=== PATIENT | female | born 1940 | race Caucasian/White ===

== ENCOUNTER 2020-09-26 12:56 | Outpatient (REF) | payer MEDICARE, OTHER, SELFPAY ==
--- NOTE | ~2020-09-26 | XR_ITS ---
EXAMINATION: XR KNEES STANDING, BILATERAL XR KNEE, RIGHT XR KNEE, LEFT CLINICAL INFORMATION: Bilateral knee pain. COMPARISON: 06/01/2008 TECHNIQUE: AP standing view of both knees as well as sunrise and lateral views of each knee. FINDINGS: RIGHT KNEE: There is significant narrowing of the medial joint space compartment as well as the patellofemoral joint about the lateral facet. There is prominent spurring present at the patellofemoral joint. No acute fracture or dislocation. No knee effusion is appreciated. LEFT KNEE: There is significant narrowing of the medial joint space compartment as well as prominent spurring about the patellofemoral joint and narrowing of the lateral facet. No acute fracture or dislocation evident. No effusion. Vascular calcifications are present. 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 This has progressed since previous study of 06/01/2008.
--- NOTE | ~2020-09-26 | XR_ITS ---
EXAMINATION: XR KNEES STANDING, BILATERAL XR KNEE, RIGHT XR KNEE, LEFT CLINICAL INFORMATION: Bilateral knee pain. COMPARISON: 06/01/2008 TECHNIQUE: AP standing view of both knees as well as sunrise and lateral views of each knee. FINDINGS: RIGHT KNEE: There is significant narrowing of the medial joint space compartment as well as the patellofemoral joint about the lateral facet. There is prominent spurring present at the patellofemoral joint. No acute fracture or dislocation. No knee effusion is appreciated. LEFT KNEE: There is significant narrowing of the medial joint space compartment as well as prominent spurring about the patellofemoral joint and narrowing of the lateral facet. No acute fracture or dislocation evident. No effusion. Vascular calcifications are present. XR/XR knee standing BI IMPRESSION: Bilateral bicompartmental significant degenerative change involving the medial joint space compartments and patellofemoral joints. This has progressed since previous study of 06/01/2008.
--- NOTE | ~2020-09-26 | XR_ITS ---
EXAMINATION: XR KNEES STANDING, BILATERAL XR KNEE, RIGHT XR KNEE, LEFT CLINICAL INFORMATION: Bilateral knee pain. COMPARISON: 06/01/2008 TECHNIQUE: AP standing view of both knees as well as sunrise and lateral views of each knee. FINDINGS: RIGHT KNEE: There is significant narrowing of the medial joint space compartment as well as the patellofemoral joint about the lateral facet. There is prominent spurring present at the patellofemoral joint. No acute fracture or dislocation. No knee effusion is appreciated. LEFT KNEE: There is significant narrowing of the medial joint space compartment as well as prominent spurring about the patellofemoral joint and narrowing of the lateral facet. No acute fracture or dislocation evident. No effusion. Vascular calcifications are present. XR/XR knee LT 2V IMPRESSION: Bilateral bicompartmental significant degenerative change involving the medial joint space compartments and patellofemoral joints. This has progressed since previous study of 06/01/2008.
--- NOTE | ~2020-09-26 | XR_ITS ---
EXAMINATION: XR PELVIS AP XR HIP, BILATERAL CLINICAL INFORMATION: Pain bilateral hips. COMPARISON: Right hip 01/24/2014. TECHNIQUE: AP pelvis one view. 2 views each hip. FINDINGS: AP PELVIS: There is mild loss of bilateral hip joint space without bony erosive changes. There is moderate periarticular spurring. SI joints are symmetrical. There is no fracture or lytic process of the pelvis. RIGHT HIP: There is moderate loss of right hip joint space with moderate periarticular spurring. Mild subchondral cystic changes seen along the femoral head. The soft tissues are normal. LEFT HIP: There is moderate loss of left hip joint space with mild periarticular spurring. There are no subchondral cystic changes. No visible acute fracture or dislocation seen. The soft tissues are normal. XR/XR hip LT min 2V IMPRESSION: Bilateral hip joint arthritis worse on the right side. No visible acute fracture, dislocation or lytic process seen.
--- NOTE | ~2020-09-26 | XR_ITS ---
EXAMINATION: XR PELVIS AP XR HIP, BILATERAL CLINICAL INFORMATION: Pain bilateral hips. COMPARISON: Right hip 01/24/2014. TECHNIQUE: AP pelvis one view. 2 views each hip. FINDINGS: AP PELVIS: There is mild loss of bilateral hip joint space without bony erosive changes. There is moderate periarticular spurring. SI joints are symmetrical. There is no fracture or lytic process of the pelvis. RIGHT HIP: There is moderate loss of right hip joint space with moderate periarticular spurring. Mild subchondral cystic changes seen along the femoral head. The soft tissues are normal. LEFT HIP: There is moderate loss of left hip joint space with mild periarticular spurring. There are no subchondral cystic changes. No visible acute fracture or dislocation seen. The soft tissues are normal. XR/XR hip RT w PEL1V IMPRESSION: Bilateral hip joint arthritis worse on the right side. No visible acute fracture, dislocation or lytic process seen.
== END 2020-09-26 12:57 | disposition home or self-care (01) ==
LOC: HO.HOSX 12:56
PROVIDERS: PCP Internal Medicine; Visit Provider Orthopaedic Surgery
DX: M17.0 Bilateral primary osteoarthritis of knee (principal); M25.552 Pain in left hip; M25.551 Pain in right hip
CPT/HCPCS: 73502; 73560; 73565; 99202

== ENCOUNTER 2020-10-23 | Outpatient (REF) | payer MEDICARE, OTHER, SELFPAY ==
--- NOTE | 2020-10-23 14:40 | ECG_ITS ---
Test Reason : PREOP Blood Pressure : / mmHG Vent. Rate : 070 BPM Atrial Rate : 070 BPM P-R Int : 142 ms QRS Dur : 084 ms QT Int : 390 ms P-R-T Axes : 002 029 029 degrees QTc Int : 421 ms Sinus rhythm with occasional Premature ventricular complexes Otherwise normal ECG No previous ECGs available Referred By: Marisa Vázquez Electronically Signed By:ISA LEMUS
[2020-10-23 15:22] LABS: MANUAL DIFF FLAG NO
[2020-10-23 15:29] LABS: Basophils Percent Auto 0.3 % (0-2); Eosinophils Absolute Auto 0.1 X10*3/uL (0.0-0.4); Eosinophils Percent Auto 0.8 % (0-4); Hematocrit 38.4 % (37-47); Hemoglobin 12.9 g/dl (12.0-16.0); Imm Gran Abs Auto 0.02 X10*3/uL (0.00-0.03); Imm Gran Pct Auto 0.3 % (0.0-0.4); Lymphocytes Absolute Auto 1.7 X10*3/uL (1.2-4.9); Lymphocytes Percent Auto 22.7 % (20-40); Mean Corpuscular HGB Conc 33.6 g/dl (31.0-35.0); Mean Corpuscular Hemoglobin 28.1 pg (27.0-33.0); Mean Corpuscular Volume 83.7 fL (80-98); Mean Platelet Volume 9.1 fL (9.4-12.3); Monocytes Absolute Auto 0.7 X10*3/uL (0.1-1.2); Monocytes Percent Auto 9.1 % (2-11); Neutrophils Percent Auto 66.8 % (45-73); Platelet Count 258 X10*3/uL (160-400); Red Blood Count 4.59 X10*6/uL (4.20-5.50); White Blood Count 7.4 X10*3/uL (4.8-10.8)
[2020-10-23 15:50] LABS: Anion Gap 16 (12-20); Blood Urea Nitrogen 15 mg/dL (9-16); Calcium 9.7 mg/dL (8.4-10.2); Carbon Dioxide 23 mmol/L (22-29); Chloride 98 mmol/L (96-108); Estimated Glomerular Filt Rate > 60; Glucose Random 96 mg/dL (60-115); Potassium 4.5 mmol/L (3.3-5.1); Sodium 132 mmol/L (135-145)
== END 2020-10-23 00:01 | disposition home or self-care (01) ==
LOC: HO.LAB
PROVIDERS: PCP Internal Medicine; Visit Provider Orthopaedic Surgery
DX: Z01.812 Encounter for preprocedural laboratory examination (principal); M16.12 Unilateral primary osteoarthritis, left hip; I49.3 Ventricular premature depolarization
CPT/HCPCS: 36415; 80048; 85025; 93005

== ENCOUNTER → 2020-10-23 12:46 | Outpatient (BNVA) | payer MEDICARE, OTHER, SELFPAY | PROVIDERS: PCP Internal Medicine; Visit Provider Orthopaedic Surgery | DX: Z01.812 Encounter for preprocedural laboratory examination (principal); Z01.810 Encounter for preprocedural cardiovascular examination ==

== ENCOUNTER 2022-04-01 23:30 | Emergency (ER) | payer MEDICARE, OTHER, SELFPAY ==
--- NOTE | ~2022-04-01 | CT_ITS ---
EXAMINATION: CT ABDOMEN AND PELVIS WITH CONTRAST CLINICAL INFORMATION: Anasarca, question pelvic mass COMPARISON: None TECHNIQUE: Multidetector volumetric images were obtained from the superior aspect of the liver through the pubic symphysis following administration 85 mL of Omnipaque 350 intravenous contrast. Sagittal and coronal reformatted images were obtained on the technologist's workstation. Oral contrast: No This CT examination was performed using dose optimization techniques as appropriate, variously including the following: *Automated exposure control *Adjustment of mA and/or kV according to patient size (this includes techniques or standardized protocols for targeted exams where dose is matched to indication/reason for exam; i.e. extremities or head) *Use of iterative reconstruction technique DLP: 956 mGy-cm FINDINGS: LUNG BASES: Coronary artery calcifications are present. LIVER, GALLBLADDER, AND BILIARY TREE: The liver is normal in size, shape, and attenuation. No focal hepatic lesion or biliary ductal dilatation is present. The gallbladder is unremarkable with no evidence of radiopaque gallstones, gallbladder wall thickening, or obvious pericholecystic inflammatory changes. PANCREAS: Unremarkable. SPLEEN: Unremarkable. 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 Right adrenal gland is unremarkable. KIDNEYS AND URETERS: The kidneys are normal in size, shape, and attenuation. No hydronephrosis, hydroureter, or calculi seen. No perinephric stranding. BLADDER: Unremarkable. GASTROINTESTINAL TRACT: Small hiatal hernia. Colonic diverticulosis is noted. There is subtle stranding adjacent to a diverticulum at the splenic flecture as seen on coronal image 42, suggesting mild diverticulitis. The small and large bowel are otherwise unremarkable without evidence of obstruction. The appendix is unremarkable. No free fluid or free air is seen. ABDOMINAL WALL: Small fat-containing umbilical hernia. No significant anasarca. LYMPH NODES: Normal. VASCULAR: Mild scattered atherosclerotic calcifications. PELVIC VISCERA: Unremarkable. OSSEOUS STRUCTURES: Degenerative changes are noted in the spine and hips. CT/CT abdomen pelvis w IV con IMPRESSION: 1. Subtle stranding adjacent to a diverticulum at the splenic flecture, suggesting mild diverticulitis. 2. Small hiatal hernia. 3. 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
--- NOTE | ~2022-04-01 | XR_ITS ---
EXAMINATION: XR CHEST CLINICAL INFORMATION: CHF COMPARISON: None TECHNIQUE: Frontal view of the chest was obtained. FINDINGS: Lung volumes are symmetric. No focal consolidation is seen. No evidence of pneumothorax, pleural effusion, or pulmonary edema. Cardiac size is within normal limits. Calcification is present at the aortic arch. No acute osseous findings are seen. XR/XR chest 1V IMPRESSION: No acute cardiopulmonary findings.
--- NOTE | 2022-04-01 23:46 | ED.BACK ---
HPI - Back Pain/Injury General Chief Complaint: General Medical Stated Complaint: body pain x1wk,leg swelling x1mnth Time Seen by Provider: 04/01/22 23:45 Source: patient Mode of arrival: EMS Limitations: no limitations History of Present Illness HPI Narrative: Patient complaining of back pain for last 1 week leg swelling for 1 month has not seen any PCP for last 3 years feels patient has gained weight about 10 lb in last 1 month also patient complaining of vesicular rash with pain on the left under breast and in the back does have exertional dyspnea also no chest pain or palpitation Related Data Previous Rx's Medication Instructions Recorded atorvastatin 20 mg tablet 20 mg PO DAILY 90 days #90 tabs 01/20/22 lisinopril 10 mg tablet 10 mg PO DAILY 90 days #90 tabs 01/20/22 cephalexin 500 mg capsule 500 mg PO QID 10 days #40 caps 04/02/22 doxycycline hyclate 100 mg tablet 100 mg PO BID #20 tabs 04/02/22 furosemide 20 mg tablet (Lasix) 20 mg PO QAM #20 tabs 04/02/22 gabapentin 100 mg capsule 100 mg PO TID #30 caps 04/02/22 valacyclovir 1 gram tablet 1,000 mg PO TID #21 tabs 04/02/22 (Valtrex) Allergies Allergy/AdvReac Type Severity Reaction Status Date / Time No Known Allergies Allergy Verified 01/20/22 13:12 Review of Systems Review of Systems: Yes all other systems are reviewed and are negative PMFSH Past Medical History Medical History Essential hypertension Hyponatremia Pre-op evaluation Pure hypercholesterolemia Surgical History No pertinent past surgical history Family History Family History Father Pancreatic cancer Mother Medical history unknown Social History Social History Housing: House Alcohol intake: never Patient Tobacco Use Status: Never used Tobacco e-Cigarette/Vaping Use: Never Used Second Hand Smoke Exposure: No Advance Directives: No Advance Directives Information Provided: No service: No Current occupational status: retired Cognitive needs: Yes Hearing needs: No Vision needs: No Physical Exam Vital Signs: Vital Signs: Last Vital Signs Temp 98.4 F 04/02/22 02:44 Pulse 84 04/02/22 02:44 Resp 14 04/02/22 02:44 BP 132/54 L 04/02/22 02:44 Pulse Ox 99 04/02/22 02:44 O2 Del Method 04/02/22 02:44 BMI result Body Mass Index 29.8 Appearance: Alert. Oriented X3. No acute distress. Eyes: No pallor or icterus ENT: Pharynx normal. Oral Mucosa moist Neck: Normal inspection. Neck supple. CVS: Normal heart rate and rhythm. Pulses normal. Respiratory: No respiratory distress. Equal air entry bilateral, no wheezing/rales/rhonchi Abdomen: Soft and nontender. Bowel sounds are present, no mass palpable, no CVA tenderness Skin: Skin warm and dry. Vesicular rash left breast and left scapular area = herpes zoster rash Extremities:3+ lower extremity edema. No calf tenderness slight erythema of the lower extremity no open wound Neuro: Oriented X 3. No motor deficit. No sensory deficit.No cerebellar signs , cranial nerves II-XII intact Medications Administered Discontinued Medications Generic Name Dose Route Start Last Admin Trade Name Freq PRN Reason Stop Dose Admin Cephalexin HCl 500 mg 04/02/22 03:08 04/02/22 03:18 Cephalexin 500 Mg Capsule PO 04/02/22 03:09 500 mg ONCE ONE Administration Doxycycline Monohydrate 100 mg 04/02/22 03:08 04/02/22 03:18 Doxycycline Monohydrate 100 Mg Capsule PO 04/02/22 03:09 100 mg ONCE ONE Administration Iohexol 85 ml 04/02/22 02:15 04/02/22 02:16 Iohexol 350 Mg/Ml 100 Ml Infus..Btl IV 04/02/22 02:16 85 ml ONCE ONE Administration Valacyclovir HCl 1,000 mg 04/02/22 00:13 04/02/22 00:43 Valacyclovir Hcl 1,000 Mg Tablet PO 04/02/22 00:14 1,000 mg ONCE ONE Administration Medical Decision Making Medical Decision Making [facility] Narrative: Patient came with increased weight gain leg edema so slight redness of the lower extremity for last few months workup showed normal BNP normal CBC count normal liver function CT scan of the abdomen is also negative for any pelvic D-dimer negative calf tenderness. Likely patient has dependent leg edema prescribed furosemide with a new morning also give short of antibiotic for cellulitis of the lower extremities advised to follow with PCP keep the leg raised patient had no chest pain EKG normal had slight increase in troponin likely from troponin leak likely from ischemia advised to follow up with PCP for further workup Differential Diagnosis CHF/PE/pelvic mass/cirrhosis of liver/DVT Lab Data MDM Lab Attestation statement: I reviewed the patient's lab results. 04/02/22 00:39 04/02/22 00:39 Labs: Lab Results 04/02/22 04/02/22 04/02/22 Range/Units 00:39 00:39 00:39 WBC 6.7 (4.8-10.8) X10*3/uL RBC 4.36 (4.20-5.50) X10*6/uL Hgb 12.1 (12.0-16.0) g/dl Hct 35.8 L (37.0-47.0) % MCV 82.1 (80.0-98.0) fL MCH 27.8 (27.0-33.0) pg MCHC 33.8 (31.0-35.0) g/dl RDW 12.9 (11.0-16.0) % Plt Count 239 (160-400) X10*3/uL MPV 8.7 L (9.4-12.3) fL Immature Gran % (Auto) 0.3 (0.0-0.4) % Neut % (Auto) 68.0 (45-73) % Lymph % (Auto) 19.4 L (20-40) % Frederick % (Auto) 10.7 (2-11) % Eos % (Auto) 1.3 (0-4) % Baso % (Auto) 0.3 (0-2) % Lymph # (Auto) 1.3 (1.2-4.9) X10*3/uL Frederick # (Auto) 0.7 (0.1-1.2) X10*3/uL Eos # (Auto) 0.1 (0.0-0.4) X10*3/uL Baso # (Auto) 0.0 (0.0-0.2) X10*3/uL Abs Immat Gran (auto) 0.02 (0.00-0.03) X10*3/uL Absolute Neuts (auto) 4.6 (2.0-8.3) x10*3/uL Absolute Nucleated RBC 0.000 (0.0-0.012) X10*3/uL Nucleated RBC % (auto) 0.0 (0.0-0.2) /100WBC PT 11.5 (10.0-13.1) SEC INR 1.0 (0.9-1.1) D-Dimer High Sensitivty 234 NG/ML Sodium 134 L (135-145) mmol/L Potassium 4.2 (3.3-5.1) mmol/L Chloride 99 (96-108) mmol/L Carbon Dioxide 23 (22-29) mmol/L Anion Gap 16 (12-20) BUN 24 H (9-16) mg/dL Creatinine 0.89 (0.5-1.4) mg/dL Estim Creat Clear Calc 53.1 Estimated GFR > 60 Random Glucose 113 (60-115) mg/dL Calcium 9.2 (8.4-10.2) mg/dL Magnesium 1.9 (1.6-2.6) mg/dL Total Bilirubin 0.3 (0.0-1.0) mg/dL AST 17 (5-31) U/L ALT 20 (0-31) U/L Alkaline Phosphatase 83 (39-117) U/L Troponin I High Sens (<3.5-17.0) ng/L B-Natriuretic Peptide (<100) pg/mL Total Protein 6.9 (6.5-8.0) g/dL Albumin 4.3 (3.5-5.0) g/dL 04/02/22 04/02/22 04/02/22 Range/Units 00:39 00:39 02:46 WBC (4.8-10.8) X10*3/uL RBC (4.20-5.50) X10*6/uL Hgb (12.0-16.0) g/dl Hct (37.0-47.0) % MCV (80.0-98.0) fL MCH (27.0-33.0) pg MCHC (31.0-35.0) g/dl RDW (11.0-16.0) % Plt Count (160-400) X10*3/uL MPV (9.4-12.3) fL Immature Gran % (Auto) (0.0-0.4) % Neut % (Auto) (45-73) % Lymph % (Auto) (20-40) % Frederick % (Auto) (2-11) % Eos % (Auto) (0-4) % Baso % (Auto) (0-2) % Lymph # (Auto) (1.2-4.9) X10*3/uL Frederick # (Auto) (0.1-1.2) X10*3/uL Eos # (Auto) (0.0-0.4) X10*3/uL Baso # (Auto) (0.0-0.2) X10*3/uL Abs Immat Gran (auto) (0.00-0.03) X10*3/uL Absolute Neuts (auto) (2.0-8.3) x10*3/uL Absolute Nucleated RBC (0.0-0.012) X10*3/uL Nucleated RBC % (auto) (0.0-0.2) /100WBC PT (10.0-13.1) SEC INR (0.9-1.1) D-Dimer High Sensitivty NG/ML Sodium (135-145) mmol/L Potassium (3.3-5.1) mmol/L Chloride (96-108) mmol/L Carbon Dioxide (22-29) mmol/L Anion Gap (12-20) BUN (9-16) mg/dL Creatinine (0.5-1.4) mg/dL Estim Creat Clear Calc Estimated GFR Random Glucose (60-115) mg/dL Calcium (8.4-10.2) mg/dL Magnesium (1.6-2.6) mg/dL Total Bilirubin (0.0-1.0) mg/dL AST (5-31) U/L ALT (0-31) U/L Alkaline Phosphatase (39-117) U/L Troponin I High Sens 19.8 H 38.5 H D (<3.5-17.0) ng/L B-Natriuretic Peptide 11 (<100) pg/mL Total Protein (6.5-8.0) g/dL Albumin (3.5-5.0) g/dL Independent Interpretation I performed an independent interpretation of an: EKG Interpretation: Normal sinus rhythm heart rate 96 beats per minute normal interval normal axis no acute ST changes impression normal EKG Discharge Plan Discharge Clinical Impression: Leg edema, Cellulitis, Herpes zoster Patient Disposition: Home, Self-Care Instructions: Shingles (ED), Cellulitis (ED), Leg Edema (ED) Additional Instructions: Keep the legs elevated Antibiotics as prescribed Water pill for increased leg swelling daily in the a.m. Check your weight daily Follow-up with PCP valtrex and gabapantin as advised for shingles Prescriptions: New furosemide [Lasix] 20 mg tablet 20 mg PO QAM Qty: 20 0RF cephalexin 500 mg capsule 500 mg PO QID 10 Days Qty: 40 0RF doxycycline hyclate 100 mg tablet 100 mg PO BID Qty: 20 0RF valacyclovir [Valtrex] 1 gram tablet 1,000 mg PO TID Qty: 21 0RF gabapentin 100 mg capsule 100 mg PO TID Qty: 30 0RF No Action atorvastatin 20 mg tablet 20 mg PO DAILY 90 Days Qty: 90 1RF lisinopril 10 mg tablet 10 mg PO DAILY 90 Days Qty: 90 3RF Interventions: ED Discharge Assessment Last Done: 04/02/22 03:40 Discharge Date/Time: 04/02/22 03:41
[2022-04-01 23:53] VITALS: BP 180/100; PULSE 84; O2SAT 98; BMI 29.8
--- NOTE | 2022-04-02 00:22 | ECG_ITS ---
Test Reason : ABD PAIN Blood Pressure : / mmHG Vent. Rate : 096 BPM Atrial Rate : 096 BPM P-R Int : 154 ms QRS Dur : 078 ms QT Int : 324 ms P-R-T Axes : 041 031 032 degrees QTc Int : 409 ms Normal sinus rhythm Normal ECG When compared with ECG of 23-OCT-2020 14:55, Premature ventricular complexes are no longer Present Referred By: Chandra Deleon Electronically Signed By:Saqib Alcaraz
[2022-04-02 00:30] VITALS: BP 139/72; PULSE 102; RESP 18; TEMP 36.8; O2SAT 96
[2022-04-02] MEDS: valACYclovir HCL 1,000 MG TABLET 1000 MG PO (00:43)
[2022-04-02 00:46] LABS: MANUAL DIFF FLAG NO
[2022-04-02 00:48] LABS: Basophils Percent Auto 0.3 % (0-2); Eosinophils Absolute Auto 0.1 X10*3/uL (0.0-0.4); Eosinophils Percent Auto 1.3 % (0-4); Hematocrit 35.8 % (37.0-47.0); Hemoglobin 12.1 g/dl (12.0-16.0); Imm Gran Abs Auto 0.02 X10*3/uL (0.00-0.03); Imm Gran Pct Auto 0.3 % (0.0-0.4); Lymphocytes Absolute Auto 1.3 X10*3/uL (1.2-4.9); Lymphocytes Percent Auto 19.4 % (20-40); Mean Corpuscular HGB Conc 33.8 g/dl (31.0-35.0); Mean Corpuscular Hemoglobin 27.8 pg (27.0-33.0); Mean Corpuscular Volume 82.1 fL (80.0-98.0); Mean Platelet Volume 8.7 fL (9.4-12.3); Monocytes Absolute Auto 0.7 X10*3/uL (0.1-1.2); Monocytes Percent Auto 10.7 % (2-11); Neutrophils Absolute Auto 4.6 x10*3/uL (2.0-8.3); Platelet Count 239 X10*3/uL (160-400); Red Blood Count 4.36 X10*6/uL (4.20-5.50); Red Cell Distribution Width 12.9 % (11.0-16.0); White Blood Count 6.7 X10*3/uL (4.8-10.8)
--- NOTE | 2022-04-02 00:52 | MHC.EDTECH ---
pt changed over to hospital gown, labs drawn, ekg completed. Pt put on HM due to her HR over 100. will continue to monitor.
[2022-04-02 00:59] LABS: Prothrombin Time 11.5 SEC (10.0-13.1)
[2022-04-02 01:01] LABS: Alanine Aminotransferase 20 U/L (0-31); Albumin Level 4.3 g/dL (3.5-5.0); Alkaline Phosphatase 83 U/L (39-117); Anion Gap 16 (12-20); Aspartate Amino Transferase 17 U/L (5-31); Bilirubin Total 0.3 mg/dL (0.0-1.0); Blood Urea Nitrogen 24 mg/dL (9-16); Calcium 9.2 mg/dL (8.4-10.2); Carbon Dioxide 23 mmol/L (22-29); Chloride 99 mmol/L (96-108); Creatinine Clr Calc Pharmacy 53.1; Estimated Glomerular Filt Rate > 60; Glucose Random 113 mg/dL (60-115); Magnesium 1.9 mg/dL (1.6-2.6); Potassium 4.2 mmol/L (3.3-5.1); Sodium 134 mmol/L (135-145); Total Protein 6.9 g/dL (6.5-8.0)
[2022-04-02 01:06] LABS: Troponin-I High Sensitivity 19.8 ng/L (<3.5-17.0)
[2022-04-02 01:07] LABS: B Type Natriuretic Peptide 11 pg/mL (<100)
[2022-04-02 01:28] LABS: D Dimer High Sensitivity 234 NG/ML
[2022-04-02] MEDS: iohexoL 350 MG/ML 100 ML INFUS..BTL 85 ML IV (02:16)
[2022-04-02 02:44] VITALS: BP 132/54; PULSE 84; RESP 14; TEMP 36.9; O2SAT 99
[2022-04-02] MEDS: Doxycycline Monohydrate 100 MG CAPSULE PO (03:18)
[2022-04-02] MEDS: cephALEXin 500 MG CAPSULE PO (03:18)
[2022-04-02 03:19] LABS: Troponin-I High Sensitivity 38.5 ng/L (<3.5-17.0)
--- NOTE | 2022-04-02 03:40 | PC.NURSE ---
Pt aox4. No apparent distress noted. IV line removed with no complication. Discharge instructions reviewed with pt. Pt verbalizes understanding.
== END 2022-04-02 03:41 | disposition home or self-care (01) ==
PROVIDERS: Emergency Provider Internal Medicine; PCP Internal Medicine
DX: M79.10 Myalgia, unspecified site (principal); R60.0 Localized edema; R06.02 Shortness of breath; B02.9 Zoster without complications; R21 Rash and other nonspecific skin eruption; R10.9 Unspecified abdominal pain; Z79.899 Other long term (current) drug therapy
CPT/HCPCS: 36415; 71045; 74177; 80053; 83735; 83880; 84484; 85025; 85379; 85610; 93005; 99284; Q9967

== ENCOUNTER 2023-05-28 03:23 | Inpatient (IN) | payer MEDICARE, OTHER, SELFPAY ==
--- NOTE | ~2023-05-28 | XR_ITS ---
EXAMINATION: XR PELVIS AND BILATERAL HIPS XR KNEE, LEFT XR KNEE, RIGHT CLINICAL INDICATION: Fall, pain COMPARISON: CT abdomen/pelvis 04/02/2022 TECHNIQUE: AP pelvis. 2 views of each hip. 2 views of each knee. FINDINGS: Pelvis/hips: Alignment across the hips is anatomic. There is severe arthritic change in both hips with loss of the joint space medially and associated protrusio acetabuli. Bilateral acetabular spurring. Subchondral cysts are also likely present. No acute fracture is seen. Sacroiliac joints and pubic symphysis appear intact. Right knee: Alignment is anatomic with tricompartmental joint space narrowing. There is prominent spurring at the patellofemoral articulation. No acute fracture is seen. No significant joint effusion. Left knee: Alignment is anatomic with tricompartmental joint space narrowing and prominent patellofemoral spurring. No acute fracture is seen. No significant effusion. XR/XR knee LT 2V IMPRESSION: 1. No acute findings identified in the pelvis/hips or knees. 2. Severe arthritic changes of the hips. 3. Degenerative changes of the knees.
--- NOTE | ~2023-05-28 | XR_ITS ---
EXAMINATION: XR PELVIS AND BILATERAL HIPS XR KNEE, LEFT XR KNEE, RIGHT CLINICAL INDICATION: Fall, pain COMPARISON: CT abdomen/pelvis 04/02/2022 TECHNIQUE: AP pelvis. 2 views of each hip. 2 views of each knee. FINDINGS: Pelvis/hips: Alignment across the hips is anatomic. There is severe arthritic change in both hips with loss of the joint space medially and associated protrusio acetabuli. Bilateral acetabular spurring. Subchondral cysts are also likely present. No acute fracture is seen. Sacroiliac joints and pubic symphysis appear intact. Right knee: Alignment is anatomic with tricompartmental joint space narrowing. There is prominent spurring at the patellofemoral articulation. No acute fracture is seen. No significant joint effusion. Left knee: Alignment is anatomic with tricompartmental joint space narrowing and prominent patellofemoral spurring. No acute fracture is seen. No significant effusion. XR/XR hip BI w PEL1V IMPRESSION: 1. No acute findings identified in the pelvis/hips or knees. 2. Severe arthritic changes of the hips. 3. Degenerative changes of the knees.
--- NOTE | ~2023-05-28 | US_ITS ---
EXAMINATION: US VENOUS ULTRASOUND WITH DOPPLER LOWER EXTREMITY, RIGHT CLINICAL INFORMATION: Right lower extremity swelling and pain, rule out DVT. COMPARISON: None available. TECHNIQUE: There was an attempt by the automatic head sawyer to perform an ultrasound examination of the deep veins from the hip to the proximal to mid right thigh with compression sonography and color and pulse Doppler assessment. Spectral analysis with color-flow imaging is considered part of the standard exam. Unfortunately, the automatic head sawyer had to terminate the exam as the patient requested termination of the exam due to pain. Payment Processor stated that the patient could not tolerate compression. FINDINGS: The automatic head sawyer was able to assess the right common femoral vein and upper portion of the proximal aspect of the right femoral vein/profunda. These visualized venous structures appear compressible with no evidence of thrombus. Unfortunately, the remainder of the right femoral vein and venous structures extending from the level of the proximal to mid thigh through the calf could not be assessed due to patient request to terminate exam. US/US venous duplex LE RT IMPRESSION: Incomplete, nondiagnostic exam. As detailed above, the automatic head sawyer had to terminate the exam as patient was unable to tolerate compression/scanning due to pain. This study was presented today 06/02/2023 for interpretation. Stat results provided at this time as requested by referring provider.
--- NOTE | ~2023-05-28 | XR_ITS ---
EXAMINATION: XR PELVIS AND BILATERAL HIPS XR KNEE, LEFT XR KNEE, RIGHT CLINICAL INDICATION: Fall, pain COMPARISON: CT abdomen/pelvis 04/02/2022 TECHNIQUE: AP pelvis. 2 views of each hip. 2 views of each knee. FINDINGS: Pelvis/hips: Alignment across the hips is anatomic. There is severe arthritic change in both hips with loss of the joint space medially and associated protrusio acetabuli. Bilateral acetabular spurring. Subchondral cysts are also likely present. No acute fracture is seen. Sacroiliac joints and pubic symphysis appear intact. Right knee: Alignment is anatomic with tricompartmental joint space narrowing. There is prominent spurring at the patellofemoral articulation. No acute fracture is seen. No significant joint effusion. Left knee: Alignment is anatomic with tricompartmental joint space narrowing and prominent patellofemoral spurring. No acute fracture is seen. No significant effusion. XR/XR knee RT 2V IMPRESSION: 1. No acute findings identified in the pelvis/hips or knees. 2. Severe arthritic changes of the hips. 3. Degenerative changes of the knees.
[2023-05-28 06:44] LABS: MANUAL DIFF FLAG NO
[2023-05-28 06:51] LABS: Alanine Aminotransferase 33 U/L (0-31); Albumin Level 4.1 g/dL (3.5-5.0); Alkaline Phosphatase 87 U/L (39-117); Anion Gap 14 (12-20); Aspartate Amino Transferase 51 U/L (5-31); Basophils Percent Auto 0.1 % (0-2); Bilirubin Direct 0.2 mg/dL (0.0-0.5); Bilirubin Total 0.4 mg/dL (0.0-1.0); Blood Urea Nitrogen 20 mg/dL (9-16); Calcium 9.2 mg/dL (8.4-10.2); Carbon Dioxide 21 mmol/L (22-29); Chloride 98 mmol/L (96-108); Eosinophils Percent Auto 0.1 % (0-4); Estimated Glomerular Filt Rate > 60; Glucose Random 125 mg/dL (60-115); Hematocrit 33.1 % (37.0-47.0); Hemoglobin 11.6 g/dl (12.0-16.0); Imm Gran Abs Auto 0.04 X10*3/uL (0.00-0.03); Imm Gran Pct Auto 0.4 % (0.0-0.4); Lymphocytes Absolute Auto 0.9 X10*3/uL (1.2-4.9); Lymphocytes Percent Auto 8.8 % (20-40); Mean Corpuscular Hemoglobin 28.4 pg (27.0-33.0); Mean Corpuscular Volume 81.1 fL (80.0-98.0); Mean Platelet Volume 8.7 fL (9.4-12.3); Monocytes Absolute Auto 0.8 X10*3/uL (0.1-1.2); Monocytes Percent Auto 7.6 % (2-11); Neutrophils Absolute Auto 8.5 x10*3/uL (2.0-8.3); Platelet Count 251 X10*3/uL (160-400); Potassium 4.4 mmol/L (3.3-5.1); Red Blood Count 4.08 X10*6/uL (4.20-5.50); Red Cell Distribution Width 12.5 % (11.0-16.0); Sodium 129 mmol/L (135-145); Total Protein 7.1 g/dL (6.5-8.0); Troponin-I High Sensitivity 25.8 ng/L (<3.5-17.0); White Blood Count 10.2 X10*3/uL (4.8-10.8)
[2023-05-28 06:52] LABS: B Type Natriuretic Peptide 25 pg/mL (<100)
[2023-05-28] MEDS: traMADoL HCL 50 MG TABLET PO (06:54)
--- NOTE | 2023-05-28 06:56 | PC.NURSE ---
pt arrived during downtime. Please see paper chart
--- NOTE | 2023-05-28 07:01 | PC.NURSE ---
2q vitals taken, documents in paper chart. 1l of NS given and tramdaol as per paper chart order. 6:15 trop redrawn by ledger clerk
[2023-05-28 07:16] VITALS: PULSE 117
--- NOTE | 2023-05-28 09:14 | PHA.MEDREC ---
Pharmacy Consult ? Medication Reconciliation Pharmacy has completed the medication reconciliation. Pt reported medications.
[2023-05-28 10:05] LABS: Osmolality Urine 498 mosm/kg (373-1093)
--- NOTE | 2023-05-28 11:09 | P.HPHOSP_ITS ---
History of Present Illness Date of Service: 05/28/23 Attending physician on admission: Rommel Hall Chief Complaint: Genearlized weakness and falls at home Pt is an 82-year-old female with a PMH significant for HTN, HLD,?and osteoarthritis who presents to the ED with?generalized weakness and fall at home. Pt reports has ?horrible? knees and hips for many years with chronic pain. Uses walker and cane at baseline. Reports yesterday evening she went to the bathroom and found she did not have enough strength in her legs to get off the toilet. Daughter came over but could not lift pt so called EMS who assisted in getting her back to bed. All told was on the toilet for two hours. At that time declined to come to the hospital for evaluation. Later that night at 23:00 pt attempted to go to the bathroom again but felt pain, numbness, and weakness in knees and fell slowly to the floor on her left hip. Denies head strike, no LOC. Call daughter who notified EMS who then brought patient to the hospital for further evaluation. Patient denies any recent illnesses or other symptoms: No fever, chills, nausea, vomiting, diarrhea. Denies cough, shortness of breath. No chest pain/pressure, palpitations. Has noticed increased lower leg edema for the past 2-3 months. In the ED pt was tachycardic up to 117 with slightly soft BP of 132/54. Labs were significant for a sodium 129, AST 51, ALT 33, CPK 1723, and initial troponin 25.8. X-ray of hips and pelvis found no acute findings but showed severe arthritic changes to the hips. X-ray of knees bilaterally without acute findings, but showed degenerative changes of the knees. EKG demonstrated normal sinus rhythm without evidence of significant ST elevations or depressions. Pt was treated with tramadol 50 mg p.o.. Pt will be admitted to the hospital for treatment and further evaluation rhabdomyolysis hyponatremia. Review of Systems 2 Review of Systems: Pain, numbness, weakness in knees and legs bilaterally Generalized weakness Fall at home Increased lower leg edema for the past 2-3 months Denies fever, chills, nausea, vomiting, diarrhea, abdominal pain No chest pain/pressure, palpitations Denies shortness of breath, no orthopnea PMFSH Medical History Hyponatremia Pre-op evaluation Pure hypercholesterolemia Essential hypertension Family History Father Pancreatic cancer Mother Medical history unknown Surgical History No pertinent past surgical history Social History Housing: House Alcohol intake: never Patient Tobacco Use Status: Never used Tobacco Smoked in Last 30 Days: No e-Cigarette/Vaping Use: Never Used Second Hand Smoke Exposure: No Use of substances other than those prescribed or required for medical reasons: No Advance Directives: No Advance Directives Information Provided: Yes service: No Current occupational status: retired Cognitive needs: Yes Hearing needs: No Vision needs: No Meds Allergies Allergy/AdvReac Type Severity Reaction Status Date / Time No Known Allergies Allergy Verified 01/20/22 13:12 Home Medications Medication Instructions Recorded Confirmed Last Taken Type atorvastatin 20 mg tablet 20 mg PO BEDTIME 05/28/23 05/28/23 05/26/23 History multivitamin 1 tab PO DAILY 05/28/23 05/28/23 Unknown History omega-3 fatty acids-fish oil 684 1 cap PO DAILY 05/28/23 05/28/23 Unknown History mg-1,200 mg capsule,delayed release Physical Exam 2 Vital Signs and Narrative: Vital Signs: Last Vital Signs Pulse 117 H 05/28/23 07:16 Constitutional: Alert, in no acute distress. Mental Status: Oriented to person, place and time. Eyes: Pupils are equal, round, and reactive to light. Ear, Nose, and Throat: Oropharynx clear, mucous membranes moist. Ears and nose without deformities. Trachea midline. Respiratory: Clear to auscultation bilaterally. No wheezing, rales, or rhonchi. Cardiovascular: S1, S2 regular. No murmurs, rubs, or gallops. Gastrointestinal: Abdomen soft, non-tender, non-distended. Normal bowel sounds. Neurologic: Cranial nerves II-XII are grossly intact bilaterally. No focal neurological deficits. Moves all extremities spontaneously. Skin: Warm, dry. Musculoskeletal: Generalized weakness noted, especially in legs. Unable to lean forward in bed. Extremities: !+ bilateral lower leg edema. Psychiatric: Normal mood and affect. Results Labs 05/28/23 04:13 05/28/23 04:13 Labs: Laboratory Results - last 24 hr 05/28/23 05/28/23 04:13 09:07 MCV 81.1 MCH 28.4 MCHC 35.0 RDW 12.5 Plt Count 251 MPV 8.7 L Immature Gran % (Auto) 0.4 Neut % (Auto) 83.0 H Lymph % (Auto) 8.8 L [place] % (Auto) 7.6 Eos % (Auto) 0.1 Baso % (Auto) 0.1 Lymph # (Auto) 0.9 L [place] # (Auto) 0.8 Eos # (Auto) 0.0 Baso # (Auto) 0.0 Abs Immat Gran (auto) 0.04 H Absolute Neuts (auto) 8.5 H Absolute Nucleated RBC 0.000 Nucleated RBC % (auto) 0.0 Anion Gap 14 Estim Creat Clear Calc TNP Estimated GFR > 60 Random Glucose 125 H Calcium 9.2 Total Bilirubin 0.4 Direct Bilirubin 0.2 AST 51 H ALT 33 H Alkaline Phosphatase 87 Total Creatine Kinase 1723 H Troponin I High Sens 25.8 H B-Natriuretic Peptide 25 Total Protein 7.1 Albumin 4.1 Urine Osmolality 498 Ur Random Sodium 61.0 Assessment and Plan (1) Acute hyponatremia: Status: Acute (2) Rhabdomyolysis: Status: Acute Plan Pt is an 82-year-old female with a PMH significant for HTN, HLD,?and osteoarthritis who presents to the ED with?generalized weakness and fall at home. Pt will be admitted to the hospital for treatment and further evaluation rhabdomyolysis hyponatremia. Hyponatremia Likely secondary to hypovolemia Urine osmolality and sodium WNL Will check serum osmolality Will give 1 L NS Fluid restriction Follow BMP Rhabdomyolysis CPK 1723 Likely secondary to fall at home Will give 1 L normal saline Follow CPK Genearlzied weakness PT evaluation Lower leg edema Worsening over the past 2-3 months Likely secondary to venous stasis No other concern for CHF: BNP WNL, no shortness of breath, no orthopnea HTN Continue lisinopril HLD Continue statin DNR/DNI, verified with pt Attending:?Dr. Hall DVT Prophylaxis: Lovenox Pt will require a hospitalization of at least two nights for treatment of?hyponatremia, rhabdomyolysis, and generalized weakness with inability to ambulate with IVF, close monitoring of labs, and PT consultation. Quality Stroke Does the patient have a stroke diagnosis?: No VTE Prior VTE?: No VTE Risk Level:: Medical - moderate - high VTE Device Contraindication: Treatment Not Indicated VTE Drug Contraindication: N/A - Med Ordered
[2023-05-28 11:22] VITALS: BP 130/61; PULSE 85; RESP 19; O2SAT 98
[2023-05-28] MEDS: 0.9 % Sodium Chloride 1,000 ML 999 ML IV (13:36)
[2023-05-28] MEDS: Enoxaparin Sodium 40 MG/0.4 ML SYRINGE SUBCUT (14:45)
[2023-05-28] MEDS: Acetaminophen 325 MG TABLET 650 MG PO ×2 (16:26→22:24)
[2023-05-28 16:27] VITALS: BMI 30.3
[2023-05-28] MEDS: 0.9 % Sodium Chloride Flush 3 ML SYRINGE IVFLUSH (16:28)
[2023-05-28 16:39] VITALS: BP 161/70; PULSE 76; RESP 13; TEMP 36.6; O2SAT 97
--- NOTE | 2023-05-28 17:18 | PC.NURSE ---
medicated with prn Tylenol for pain in legs. vitals stable. waiting for room assignment
[2023-05-28 18:07] LABS: Anion Gap 15 (12-20); Blood Urea Nitrogen 13 mg/dL (9-16); Calcium 9.2 mg/dL (8.4-10.2); Carbon Dioxide 22 mmol/L (22-29); Chloride 101 mmol/L (96-108); Creatinine Clr Calc Pharmacy 82.2; Estimated Glomerular Filt Rate > 60; Glucose Random 87 mg/dL (60-115); Potassium 3.8 mmol/L (3.3-5.1); Sodium 134 mmol/L (135-145)
[2023-05-28 20:27] VITALS: BP 157/76; PULSE 92; RESP 19; TEMP 37.1; O2SAT 99
[2023-05-28 23:24] VITALS: BP 137/61; PULSE 97; RESP 19; TEMP 37.1; O2SAT 99
[2023-05-29 04:00] VITALS: BP 152/65; PULSE 81; RESP 19; TEMP 37.6; O2SAT 96
[2023-05-29 07:03] LABS: Anion Gap 10 (12-20); Blood Urea Nitrogen 15 mg/dL (9-16); Calcium 8.4 mg/dL (8.4-10.2); Carbon Dioxide 21 mmol/L (22-29); Chloride 106 mmol/L (96-108); Creatinine Clr Calc Pharmacy 72.9; Estimated Glomerular Filt Rate > 60; Glucose Random 94 mg/dL (60-115); Magnesium 1.8 mg/dL (1.6-2.6); Potassium 3.9 mmol/L (3.3-5.1); Sodium 133 mmol/L (135-145)
[2023-05-29 07:26] VITALS: BP 143/67; PULSE 85; RESP 18; TEMP 36.7; O2SAT 97
--- NOTE | 2023-05-29 07:29 | HO.PM.IMPN ---
Subjective Subjective Date of Service: 05/29/23 Interval History: f/u on hyponatremia, weakness and fall interval history: feels better, she has had ongoing weakness in the legs for years and seems tro have gotten worse, she has degenerative disease in both hips and knee, prior to coming she was stuck on toilet for hours ems came help her, after that they left and she had a fall and ended up coming in Physical Exam Vital Signs: Vital Signs: Last Vital Signs Temp 98.1 F 05/29/23 07:26 Pulse 85 05/29/23 07:26 Resp 18 05/29/23 07:26 BP 143/67 H 05/29/23 07:26 Pulse Ox 97 05/29/23 07:26 O2 Del Method Room Air 05/29/23 07:26 BMI result Body Mass Index 30.3 General: AO X 3, no acute distress Resp: CTA bilateral CVS: S1,S2,RRR GI: +BS, NT, no distention Skin: sings of chronic venous stasis of both legs, no redness, Neuro: motor grossly intact Psych: appropriate affect Objective Data Active Medications Acetaminophen (Acetaminophen 325 Mg Tablet) 650 mg PO Q6H PRN PRN Reason: Pain, Mild (Pain Scale 1-3) Last Admin: 05/28/23 22:24 Dose: 650 mg Documented By: NEETA Benzonatate (Benzonatate 100 Mg Capsule) 100 mg PO TID PRN PRN Reason: Cough Docusate Sodium (Docusate Sodium 100 Mg Capsule) 100 mg PO DAILY PRN PRN Reason: Constipation Enoxaparin Sodium (Enoxaparin Sodium 40 Mg/0.4 Ml Syringe) 40 mg SUBCUT Q24H [facility] Last Admin: 05/28/23 14:45 Dose: 40 mg Documented By: TADEO Melatonin (Melatonin 3 Mg Tablet) 6 mg PO BEDTIME PRN PRN Reason: Insomnia Ondansetron HCl (Ondansetron Hcl 4 Mg/2 Ml Vial) 4 mg IVPUSH Q8H PRN PRN Reason: Nausea and Vomiting Sodium Chloride (0.9 % Sodium Chloride Flush 3 Ml Syringe) 3 ml IVFLUSH QSHIFT [facility] Last Admin: 05/28/23 23:39 Dose: Not Given Documented By: NEETA Non-Admin Reason: Previously Administered Labs 05/28/23 04:13 05/29/23 06:19 Labs: Laboratory Results - last 24 hr 05/28/23 05/28/23 05/28/23 09:07 13:41 16:40 Hold Purple Top Anion Gap 15 Estim Creat Clear Calc 82.2 Estimated GFR > 60 Random Glucose 87 Calcium 9.2 Magnesium Total Creatine Kinase Troponin I High Sens 21.0 H Urine Osmolality 498 Ur Random Sodium 61.0 05/29/23 06:19 Hold Purple Top SEE NOTE Anion Gap 10 L Estim Creat Clear Calc 72.9 Estimated GFR > 60 Random Glucose 94 Calcium 8.4 D Magnesium 1.8 Total Creatine Kinase 1127 H Troponin I High Sens Urine Osmolality Ur Random Sodium Assessment and Plan (1) Rhabdomyolysis: Status: Acute (2) Weakness: Status: Acute (3) Acute hyponatremia: Status: Acute Plan Pt is an 82-year-old female with a PMH significant for HTN, HLD,?and osteoarthritis who presents to the ED with?generalized weakness and fall at home. Pt will be admitted to the hospital for treatment and further evaluation rhabdomyolysis hyponatremia. Hyponatremia, acute on chronic likely from hypervolemia, improved, 129 to 133 now -water restriction , and continue monitoring trend Rhabdomyolysis, mild from fall follow up on xray of hip and knee CPK 1723-->1127 Genearlzied weakness, d/t hyponatremia, PT evaluation Lower leg edema Worsening over the past 2-3 months Likely secondary to venous stasis No other concern for CHF: BNP WNL, no shortness of breath, no orthopnea HTN Continue lisinopril HLD Continue statin DNR/DNI, verified with pt DVT Prophylaxis: Lovenox need for inpatient: treatment of hypOnatremia and need for fluid management and frequent lab check and safe disposition Quality Stroke Does the patient have a stroke diagnosis?: No VTE Prior VTE?: No VTE Risk Level:: Medical - moderate - high VTE Device Contraindication: Treatment Not Indicated VTE Drug Contraindication: N/A - Med Ordered
--- NOTE | 2023-05-29 09:48 | MHC.CM.PN ---
Addendum entered by Elvia Miguel 05/29/23 11:34: HCP completed, naming daughter, Ashley and son, Sage, added to chart, copies to pt. Original Note: IMM 05/29/23, Pt lives alone, no home health services, She has a HCP, naming her daughter Ashley, she will complete form here. She uses a walker, PCP: Amanda Jasmine. CM asked if she would like to meet with rep from [facility] to discuss services, she agreed, task submitted. Pt. said she is having difficulty with her legs, preventing her from being able to get in her shower, and keep her house as she used to. Dtr to provide transport upon DC if plan is home. CM to follow and assist with DC plan.
[2023-05-29 10:02] VITALS: BP 143/67; PULSE 85; O2SAT 97
[2023-05-29] MEDS: 0.9 % Sodium Chloride Flush 3 ML SYRINGE IVFLUSH ×2 (10:11→15:21)
[2023-05-29] MEDS: lisinopriL 10 MG TABLET PO (10:12)
[2023-05-29] MEDS: Multivitamin TABLET 1 TAB PO (10:12)
[2023-05-29 10:58] VITALS: BP 139/66; PULSE 86; RESP 18; TEMP 36.7; O2SAT 96
[2023-05-29 14:56] VITALS: BP 141/62; PULSE 96; RESP 18; TEMP 36.8; O2SAT 98
[2023-05-29] MEDS: Enoxaparin Sodium 40 MG/0.4 ML SYRINGE SUBCUT (15:19)
[2023-05-29] MEDS: Acetaminophen 325 MG TABLET 650 MG PO (15:20)
[2023-05-29 20:00] VITALS: BP 156/64; PULSE 78; RESP 20; TEMP 36.9; O2SAT 100
[2023-05-29] MEDS: traMADoL HCL 50 MG TABLET 25 MG PO (20:45)
[2023-05-29] MEDS: Lidocaine 4 % Patch ADH..PATCH 1 PATCH TRANSDERMA (20:47)
[2023-05-29] MEDS: Atorvastatin Calcium 20 MG TABLET PO (20:48)
[2023-05-30] VITALS (7 sets, daily range): BP systolic 126–151; BP diastolic 60–89; PULSE 67–87; RESP 16–20; TEMP 36.3–36.8; O2SAT 94–98
[2023-05-30] MEDS: traMADoL HCL 50 MG TABLET 25 MG PO ×2 (03:21→10:17)
[2023-05-30] MEDS: Multivitamin TABLET 1 TAB PO (08:14)
[2023-05-30] MEDS: lisinopriL 10 MG TABLET PO (08:14)
[2023-05-30] MEDS: 0.9 % Sodium Chloride Flush 3 ML SYRINGE IVFLUSH ×2 (08:15→15:22)
[2023-05-30 08:19] LABS: Anion Gap 12 (12-20); Blood Urea Nitrogen 13 mg/dL (9-16); Calcium 8.4 mg/dL (8.4-10.2); Carbon Dioxide 22 mmol/L (22-29); Chloride 104 mmol/L (96-108); Creatinine Clr Calc Pharmacy 83.7; Estimated Glomerular Filt Rate > 60; Glucose Random 101 mg/dL (60-115); Potassium 3.8 mmol/L (3.3-5.1); Sodium 134 mmol/L (135-145)
--- NOTE | 2023-05-30 12:14 | MHC.CM.PN ---
CM met with Patient at bedside to discuss PT's recommendation for STR. Patient[facility] SNF [facility] [place], second choice is [facility] and she is agreeable to a SNF search in the [facility]. CM will follow.
--- NOTE | 2023-05-30 12:16 | P.PNIM_ITS ---
Subjective Subjective Date of Service: 05/30/23 Interval History: f/u on hyponatremia, weakness and fall interval history: feels better, she has had ongoing weakness in the legs for years and seems tro have gotten worse, she has degenerative disease in both hips and knee, prior to coming she was stuck on toilet for hours ems came help her, after that they left and she had a fall and ended up coming in. Today her pain is much better than yesterday after tramadol Physical Exam 2 Vital Signs: Vital Signs: Last Vital Signs Temp 97.7 F 05/30/23 11:29 Pulse 80 05/30/23 11:29 Resp 18 05/30/23 11:29 BP 126/60 05/30/23 11:29 Pulse Ox 95 05/30/23 11:29 O2 Del Method Room Air 05/30/23 11:29 BMI result Body Mass Index 30.3 General: AO X 3, no acute distress Resp: CTA bilateral CVS: S1,S2,RRR GI: +BS, NT, no distention Skin: sings of chronic venous stasis of both legs, no redness, Neuro: motor grossly intact Psych: appropriate affect Objective Data Active Medications Acetaminophen (Acetaminophen 325 Mg Tablet) 650 mg PO Q6H PRN PRN Reason: Pain, Mild (Pain Scale 1-3) Last Admin: 05/29/23 15:20 Dose: 650 mg Documented By: BEBE Atorvastatin Calcium (Atorvastatin Calcium 20 Mg Tablet) 20 mg PO BEDTIME [facility] Last Admin: 05/29/23 20:48 Dose: 20 mg Documented By: DIMITRIOS Benzonatate (Benzonatate 100 Mg Capsule) 100 mg PO TID PRN PRN Reason: Cough Docusate Sodium (Docusate Sodium 100 Mg Capsule) 100 mg PO DAILY PRN PRN Reason: Constipation Enoxaparin Sodium (Enoxaparin Sodium 40 Mg/0.4 Ml Syringe) 40 mg SUBCUT Q24H [facility] Last Admin: 05/29/23 15:19 Dose: 40 mg Documented By: BEBE Lisinopril (Lisinopril 10 Mg Tablet) 10 mg PO DAILY [facility]; Protocol Last Admin: 05/30/23 08:14 Dose: 10 mg Documented By: HERB Melatonin (Melatonin 3 Mg Tablet) 6 mg PO BEDTIME PRN PRN Reason: Insomnia Multivitamins/Vitamin C (Multivitamin Tablet) 1 tab PO DAILY [facility] Last Admin: 05/30/23 08:14 Dose: 1 tab Documented By: HERB Ondansetron HCl (Ondansetron Hcl 4 Mg/2 Ml Vial) 4 mg IVPUSH Q8H PRN PRN Reason: Nausea and Vomiting Sodium Chloride (0.9 % Sodium Chloride Flush 3 Ml Syringe) 3 ml IVFLUSH QSHIFT [facility] Last Admin: 05/30/23 08:15 Dose: 3 ml Documented By: HERB Tramadol HCl (Tramadol Hcl 50 Mg Tablet) 25 mg PO Q6H PRN PRN Reason: Pain, Severe (Pain Scale 7-10) Last Admin: 05/30/23 10:17 Dose: 25 mg Documented By: HERB Labs 05/28/23 04:13 05/30/23 07:14 Labs: Laboratory Results - last 24 hr 05/29/23 05/30/23 20:44 07:14 Anion Gap 12 Estim Creat Clear Calc 83.7 Estimated GFR > 60 Random Glucose 101 Calcium 8.4 Total Creatine Kinase 785 H Assessment and Plan (1) Rhabdomyolysis: Status: Acute (2) Weakness: Status: Acute (3) Acute hyponatremia: Status: Acute Plan Pt is an 82-year-old female with a PMH significant for HTN, HLD,?and osteoarthritis who presents to the ED with?generalized weakness and fall at home. Pt will be admitted to the hospital for treatment and further evaluation rhabdomyolysis hyponatremia. Hyponatremia, acute on chronic likely from hypervolemia, improved, 129 to 133 now -water restriction , and continue monitoring trend Rhabdomyolysis, mild from fall follow up on xray of hip and knee CPK 1723-->1127--> 785 and is expected to continue to trend [place] Genearlzied weakness, d/t hyponatremia, and chronic joint disease of knees and hips PT evaluation Lower leg edema--trace Worsening over the past 2-3 months, likely dependent/venous stasis No other concern for CHF: BNP WNL, no shortness of breath, no orthopnea elevate legs while in bed HTN Continue lisinopril HLD Continue statin DNR/DNI, verified with pt DVT Prophylaxis: Lovenox need for inpatient: treatment of hypOnatremia and need for fluid management and frequent lab check and safe disposition PT is recommending STR Quality Stroke Does the patient have a stroke diagnosis?: No VTE Prior VTE?: No VTE Risk Level:: Medical - moderate - high VTE Device Contraindication: Treatment Not Indicated VTE Drug Contraindication: N/A - Med Ordered
[2023-05-30] MEDS: Enoxaparin Sodium 40 MG/0.4 ML SYRINGE SUBCUT (14:33)
[2023-05-30] MEDS: Acetaminophen 325 MG TABLET 650 MG PO (15:17)
--- NOTE | 2023-05-30 17:22 | ECG_ITS ---
Test Reason : afib Blood Pressure : / mmHG Vent. Rate : 069 BPM Atrial Rate : 069 BPM P-R Int : 198 ms QRS Dur : 078 ms QT Int : 372 ms P-R-T Axes : 030 009 019 degrees QTc Int : 398 ms Normal sinus rhythm Normal ECG When compared with ECG of 02-APR-2022 00:27, No significant change was found Referred By: Abel Kirkpatrick Electronically Signed By:Saqib Alcaraz
--- NOTE | 2023-05-30 19:10 | PC.NURSE ---
Patient alert and oriented to person place and event. At 17:15 technology consultant notified nurse of [employer]. At 17:18 Dr Nelson sent screen shot of monitor strip. Patient asymptomatic, not complaints of chest pain. Dr. Nelson order EKG AT 17:26. Patient converted by self back to sinus rhythm. EKG result in sinus rhythm. Dr. Nelson updated. No new order at this time.
[2023-05-30] MEDS: Atorvastatin Calcium 20 MG TABLET PO (20:14)
--- NOTE | 2023-05-31 00:04 | PC.NURSE ---
Assumed care of patient at 19:00. Please see shift assessment, tasks, and MAR for full details. Handoff report given at 23:15.
[2023-05-31] MEDS: 0.9 % Sodium Chloride Flush 3 ML SYRINGE IVFLUSH ×4 (00:38→20:02)
[2023-05-31 03:11] VITALS: BP 147/71; PULSE 86; RESP 16; TEMP 36.6; O2SAT 96
[2023-05-31 07:21] VITALS: BP 134/63; PULSE 75; RESP 18; TEMP 36.3; O2SAT 95
--- NOTE | 2023-05-31 07:41 | ECG_ITS ---
Test Reason : afib Blood Pressure : / mmHG Vent. Rate : 074 BPM Atrial Rate : 074 BPM P-R Int : 164 ms QRS Dur : 086 ms QT Int : 376 ms P-R-T Axes : 037 004 030 degrees QTc Int : 417 ms Normal sinus rhythm Minimal voltage criteria for LVH, may be normal variant ( R in aVL ) Borderline ECG When compared with ECG of 30-MAY-2023 17:22, Nonspecific T wave abnormality has replaced inverted T waves in Inferior leads Referred By: Abel Nelson Electronically Signed By:Saqib Alcaraz
--- NOTE | 2023-05-31 09:26 | P.PNIM_ITS ---
Subjective Subjective Date of Service: 05/31/23 Interval History: f/u on hyponatremia, weakness and fall interval history: Overnight noted to have brief episodes of Aflutter, inital once lasting just about 30 seconds, and subsequent had other episodes through the night but not captured on ECG. This morning in sinus rhythm. As for pain in the legs, she is reporting some relief as well Physical Exam 2 Vital Signs: Vital Signs: Last Vital Signs Temp 97.4 F 05/31/23 07:21 Pulse 75 05/31/23 07:21 Resp 18 05/31/23 07:21 BP 134/63 05/31/23 07:21 Pulse Ox 95 05/31/23 07:21 O2 Del Method Room Air 05/31/23 07:21 BMI result Body Mass Index 30.3 General: AO X 3, no acute distress Resp: CTA bilateral CVS: S1,S2,RRR GI: +BS, NT, no distention Skin: No rash Neuro: motor grossly intact Psych: appropriate affect Objective Data Active Medications Acetaminophen (Acetaminophen 325 Mg Tablet) 650 mg PO Q6H PRN PRN Reason: Pain, Mild (Pain Scale 1-3) Last Admin: 05/30/23 15:17 Dose: 650 mg Documented By: HERB Apixaban (Apixaban 5 Mg Tablet) 5 mg PO BID [facility] Atorvastatin Calcium (Atorvastatin Calcium 20 Mg Tablet) 20 mg PO BEDTIME [facility] Last Admin: 05/30/23 20:14 Dose: 20 mg Documented By: MAGDALENA Benzonatate (Benzonatate 100 Mg Capsule) 100 mg PO TID PRN PRN Reason: Cough Docusate Sodium (Docusate Sodium 100 Mg Capsule) 100 mg PO DAILY PRN PRN Reason: Constipation Lisinopril (Lisinopril 10 Mg Tablet) 10 mg PO DAILY [facility]; Protocol Last Admin: 05/30/23 08:14 Dose: 10 mg Documented By: HERB Melatonin (Melatonin 3 Mg Tablet) 6 mg PO BEDTIME PRN PRN Reason: Insomnia Metoprolol Tartrate (Metoprolol Tartrate 12.5 Mg Halftab) 12.5 mg PO BID [facility]; Protocol Multivitamins/Vitamin C (Multivitamin Tablet) 1 tab PO DAILY [facility] Last Admin: 05/30/23 08:14 Dose: 1 tab Documented By: HERB Ondansetron HCl (Ondansetron Hcl 4 Mg/2 Ml Vial) 4 mg IVPUSH Q8H PRN PRN Reason: Nausea and Vomiting Sodium Chloride (0.9 % Sodium Chloride Flush 3 Ml Syringe) 3 ml IVFCAPE [facility] Last Admin: 05/31/23 00:38 Dose: 3 ml Documented By: ADALBERTO Tramadol HCl (Tramadol Hcl 50 Mg Tablet) 25 mg PO Q6H PRN PRN Reason: Pain, Severe (Pain Scale 7-10) Last Admin: 05/30/23 10:17 Dose: 25 mg Documented By: HERB Labs 05/28/23 04:13 05/30/23 07:14 Assessment and Plan (1) Rhabdomyolysis: Status: Acute (2) Weakness: Status: Acute (3) Acute hyponatremia: Status: Acute Plan Pt is an 82-year-old female with a PMH significant for HTN, HLD,?and osteoarthritis who presents to the ED with?generalized weakness and fall at home. Pt will be admitted to the hospital for treatment and further evaluation rhabdomyolysis hyponatremia. PAF--new, started Eliquis, check TSH, Echo and cardiology assessmenent. 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 PT evaluation recommends STR Lower leg edema--trace Worsening over the past 2-3 months, likely dependent/venous stasis No other concern for CHF: BNP WNL, no shortness of breath, no orthopnea elevate legs while in bed HTN--controlled Continue lisinopril HLD Continue statin DNR/DNI, verified with pt DVT Prophylaxis: Lovenox need for inpatient: treatment of hypOnatremia and need for fluid management and frequent lab check and safe disposition and now new onset of AFIB that need further testing PT is recommending STR Quality Stroke Does the patient have a stroke diagnosis?: No VTE Prior VTE?: No VTE Risk Level:: Medical - moderate - high VTE Device Contraindication: Treatment Not Indicated VTE Drug Contraindication: N/A - Med Ordered
[2023-05-31] MEDS: lisinopriL 10 MG TABLET PO (09:37)
[2023-05-31] MEDS: Acetaminophen 325 MG TABLET 650 MG PO ×2 (09:37→17:52)
[2023-05-31] MEDS: Apixaban 5 MG TABLET PO ×2 (09:37→20:01)
[2023-05-31] MEDS: Multivitamin TABLET 1 TAB PO (09:37)
[2023-05-31] MEDS: Metoprolol Tartrate 12.5 MG HALFTAB PO ×2 (09:37→20:01)
--- NOTE | 2023-05-31 10:36 | PM.CNCAR ---
History of Present Illness History of Present Illness Date of Service: 05/31/23 Requesting physician: Abel Nelson Chief complaint: PAF Narrative: 82-year-old female who is admitted with rhabdomyolysis and hyponatremia. She had runs of atrial fibrillation overnight and we have been consulted for that. She is not complaining of any symptoms currently but is saying that at home she had some episodes of palpitations off and on. She also had 1 run which very much looks like SVT. Currently in sinus rhythm. Denying any symptoms. Her main complaints are leg weakness going on for 2 years or so. She walks with a walker. She had a fall when she did not use walker but otherwise with a walker she had been steady and no falls while using walker/cane. She has been started on anticoagulation already for AFib. [facility] Past Medical History Medical History Hyponatremia Pre-op evaluation Pure hypercholesterolemia Essential hypertension Family History Family History Father Pancreatic cancer Mother Medical history unknown Surgical History Surgical History No pertinent past surgical history Social History Social History Household Members: None [facility] Do you presently have visiting nurse or other home services: No Alcohol intake: never Patient Tobacco Use Status: Never used Tobacco e-Cigarette/Vaping Use: Never Used Second Hand Smoke Exposure: No service: No Current occupational status: retired Cognitive needs: Yes Hearing needs: No Vision needs: No Meds Allergies Allergy/AdvReac Type Severity Reaction Status Date / Time No Known Allergies Allergy Verified 01/20/22 13:12 Active Medications: Current Medications Acetaminophen (Acetaminophen 325 Mg Tablet) 650 mg PO Q6H PRN PRN Reason: Pain, Mild (Pain Scale 1-3) Last Admin: 05/31/23 09:37 Dose: 650 mg Apixaban (Apixaban 5 Mg Tablet) 5 mg PO BID [facility] Last Admin: 05/31/23 09:37 Dose: 5 mg Atorvastatin Calcium (Atorvastatin Calcium 20 Mg Tablet) 20 mg PO BEDTIME [facility] Last Admin: 05/30/23 20:14 Dose: 20 mg Benzonatate (Benzonatate 100 Mg Capsule) 100 mg PO TID PRN PRN Reason: Cough Docusate Sodium (Docusate Sodium 100 Mg Capsule) 100 mg PO DAILY PRN PRN Reason: Constipation Lisinopril (Lisinopril 10 Mg Tablet) 10 mg PO DAILY [facility]; Protocol Last Admin: 05/31/23 09:37 Dose: 10 mg Melatonin (Melatonin 3 Mg Tablet) 6 mg PO BEDTIME PRN PRN Reason: Insomnia Metoprolol Tartrate (Metoprolol Tartrate 12.5 Mg Halftab) 12.5 mg PO BID [facility]; Protocol Last Admin: 05/31/23 09:37 Dose: 12.5 mg Multivitamins/Vitamin C (Multivitamin Tablet) 1 tab PO DAILY [facility] Last Admin: 05/31/23 09:37 Dose: 1 tab Ondansetron HCl (Ondansetron Hcl 4 Mg/2 Ml Vial) 4 mg IVPUSH Q8H PRN PRN Reason: Nausea and Vomiting Sodium Chloride (0.9 % Sodium Chloride Flush 3 Ml Syringe) 3 ml IVFLUSH QSHIFT [facility] Last Admin: 05/31/23 09:38 Dose: 3 ml Tramadol HCl (Tramadol Hcl 50 Mg Tablet) 25 mg PO Q6H PRN PRN Reason: Pain, Severe (Pain Scale 7-10) Last Admin: 05/30/23 10:17 Dose: 25 mg Home Medications Medication Instructions Recorded Confirmed Last Taken Type atorvastatin 20 mg tablet 20 mg PO BEDTIME 05/28/23 05/28/23 05/26/23 History multivitamin 1 tab PO DAILY 05/28/23 05/28/23 Unknown History omega-3 fatty acids-fish oil 684 1 cap PO DAILY 05/28/23 05/28/23 Unknown History mg-1,200 mg capsule,delayed release Physical Exam Vital Signs: Vital Signs: Last Vital Signs Temp 97.4 F 05/31/23 07:21 Pulse 75 05/31/23 07:21 Resp 18 05/31/23 07:21 BP 134/63 05/31/23 07:21 Pulse Ox 95 05/31/23 07:21 O2 Del Method Room Air 05/31/23 07:21 BMI result Body Mass Index 30.3 GENERAL APPEARANCE: in no acute distress, pleasant. NECK: no carotid bruit, no jugular venous distention. SKIN: no suspicious lesions, warm and dry. HEART: no murmurs, regular rate and rhythm. LUNGS: clear to auscultation bilaterally. ABDOMEN: soft, nontender. EXTREMITIES: Mild edema. PERIPHERAL PULSES: equal. Objective Labs and Meds 05/28/23 04:13 05/30/23 07:14 Assessment and Plan (1) PAF (paroxysmal atrial fibrillation): Status: Acute Plan Pleasant 82-year-old female who is admitted with rhabdomyolysis and hyponatremia. She is improving. Overnight she had runs of atrial fibrillation. At home she also has episodes where she gets palpitations. She is high risk for stroke but also has some fall risk due to leg weakness. Her falls are mostly when she has not using her walker. I have reinforced the use a walker to the patient every time she is ambulating. Agree with anticoagulation for now. Obviously if there are concerns that she is falling while using walker or her daughter who has a nurse has concerns then we may have to question the use of anticoagulation. Thank you for allowing me to participate in the care of your patient. Please feel free to contact me if you have any questions. Procedures Date of Service Date of Service: 05/31/23
[2023-05-31 12:00] VITALS: BP 136/75; PULSE 84; RESP 18; TEMP 36.3; O2SAT 96
[2023-05-31 12:28] LABS: Anion Gap 15 (12-20); Blood Urea Nitrogen 13 mg/dL (9-16); Calcium 9.1 mg/dL (8.4-10.2); Carbon Dioxide 20 mmol/L (22-29); Chloride 103 mmol/L (96-108); Creatinine Clr Calc Pharmacy 75.4; Estimated Glomerular Filt Rate > 60; Glucose Random 107 mg/dL (60-115); Potassium 4.3 mmol/L (3.3-5.1); Sodium 134 mmol/L (135-145)
[2023-05-31 12:33] LABS: Thyroid Stimulating Hormone 2.27 uIU/mL (0.32-4.0)
[2023-05-31 15:32] VITALS: BP 146/63; PULSE 79; RESP 15; TEMP 36.4; O2SAT 96
[2023-05-31 19:12] VITALS: BP 148/65; PULSE 85; RESP 20; TEMP 36.8; O2SAT 97
[2023-05-31] MEDS: Atorvastatin Calcium 20 MG TABLET PO (20:01)
[2023-05-31 23:26] VITALS: BP 142/66; PULSE 76; RESP 18; TEMP 36.6; O2SAT 96
[2023-06-01 03:25] VITALS: BP 147/80; PULSE 86; RESP 20; TEMP 36.4; O2SAT 99
[2023-06-01] MEDS: Acetaminophen 325 MG TABLET 650 MG PO (05:16)
--- NOTE | 2023-06-01 07:00 | CA_ITS ---
Transthoracic Echocardiogram Patient (Last, First, Middle): Chana Bedoya L Gender: Female Date of : 1940 Age: 82 Procedure Date: 06/01/2023 Procedure Type: Transthoracic Echocardiogram Location: [facility] [place] Height: 165.1 cm Weight: 82.56 kg BSA: 1.90 m2 Heart Rate: bpm BP: 130 / 68 mmHg Automotive Brake Technician: NIKI Referring MD: Abel Nelson MD Dosier Operator: Bora German MD Symptoms: New AFIB Study Quality: Adequate w contrast ECG Rhythm: Sinus with intermittent atrial fibrillation Conclusions: - 1. Normal LV ejection fraction of 60 65% with impaired relaxation filling pattern 2. Mildly dilated left atrium 3. Cardiac valvular Dopplers within normal limits 4. Normal RV systolic pressure 5. No gross pericardial effusion Findings Procedure Information Contrast agent, definity, is being given per protocol without apparent complications. Left Ventricle Normal left ventricular size, thickness, and systolic function. The visually estimated ejection fraction is between 60-65%. Spectral Doppler is indicative of an impaired relaxation filling pattern. E/E prime ratio is between 8 and 15 consistent with indeterminate filling pressures. Right Ventricle Normal right ventricular cavity size and systolic function. Atria The left atrium is mildly dilated. There is no evidence of interatrial shunt. The right atrium is normal in size. Aortic Valve Normal aortic valve structure and function. There is no aortic valve stenosis. There is no aortic valve regurgitation. Mitral Valve Likely normal mitral valve structure and function. There is no mitral valve regurgitation. There is no mitral valve stenosis. Pulmonic Valve The pulmonic valve was not well visualized. Tricuspid Valve Likely normal tricuspid valve structure and function. There is trace tricuspid valve regurgitation. The right ventricular systolic pressure is normal. The right ventricular systolic pressure is 24 mmHg. Normal right atrial pressure. There is no evidence of pulmonary hypertension. Great Vessels The aorta was not well visualized. The pulmonary artery was not well visualized. Venous The inferior vena cava is normal in size and collapses greater than 50% with inspiration. Pericardium/Pleural There is no evidence of pericardial effusion. Measurements 2D Linear Measurements IVSd: 0.81 0.6-0.9/0.6-1.0 cm LVIDd: 5.05 3.9-5.3/4.2-5.9 cm LVIDd Index: 2.66 2.4-3.2/2.2-3.1 cm/m2 LVIDs: 3.41 2.0-3.6 cm LVPWd: 0.58 0.7-1.1 cm LA Diam: 4.60 2.7-3.8/3.0-4.0 cm LAIDs Index: 2.42 1.5-2.3 cm/m2 LV Mass: 144.09 67-162/88-224 g LV Mass Index: 75.84 43-95/49-115 g/m2 LVOT Diam: 1.90 3.0+(-)1.3 cm 2D Systolic Function EF 4C: 44.40 >55% EF 2C: 77.00 >55% EF BiP: 64.30 >55% Mitral Valve MV Pk E: 1.02 MV PK A: 1.10 MV Decel Time: 192.00 E/A: 0.90 E'Lateral: 10.00 E'Medial: 6.96 E/E' Med: 14.70 E/E' Lat: 10.20 PHT: 56.00 MVA PHT: 3.93 Decel Boyle: 5.32 Aortic Valve AoV Pk Chase: 1.53 AoV Pk Grad: 9.00 VIOLET: 1.92 LVOT LVOT Pk Chase: 0.94 LVOT Mn Chase: 0.64 LVOT VTI: 0.21 LVOT Pk Grad: 4.00 LVOT Mn Grad: 2.00 LVOT Diam: 1.90 LVOT Area: 2.84 Diastolic Function MV Pk E: 1.02 MV Pk A: 1.10 E/A: 0.90 E'Medial: 6.96 E/E' Med: 14.70 E' Laterial: 10.00 E/E' Lat: 10.20 Right Ventricle TAPSE (mm): 9.60 Tricuspid Valve TR Pk Chase: 2.30 TR Pk Grad: 21.00 RA Press: 3.00 RVSP: 24.00 Great Vessels Aorta Sinus of Valsalva: 2.80 2.0-3.5 cm Ao Asc: 3.10 2.1-3.4 cm Updated in Other Vendor System with Status of Final Bora German MD electronically signed on 06/01/2023 11:18:16 AM with status of Final
[2023-06-01 07:17] VITALS: BP 130/68; PULSE 95; RESP 20; TEMP 36.3; O2SAT 97
--- NOTE | 2023-06-01 07:34 | PC.NURSE ---
Pt continues with frequent brief (non-sustained) bursts of aflutter ranging 110's to 130's that very quickly and spontaneously resolve back into SR 70-80's. Pt has been alternating between controlled aflutter and SR this shift and prior per report. This issue is previously known to MD with cardiology consulted and saw pt on 05/30 per chart review; pt is on eliquis and metoprolol po bid, with echo previously ordered and awaiting to be done. Covering Dr. Rehman notified; advised this tag writer to notify should rate reach 140?s or greater. Pt denies symptoms including chest pain and palpitations. Handoff report given 06:45.
[2023-06-01] MEDS: lisinopriL 10 MG TABLET PO (08:58)
[2023-06-01] MEDS: traMADoL HCL 50 MG TABLET 25 MG PO ×2 (08:58→23:18)
[2023-06-01] MEDS: 0.9 % Sodium Chloride Flush 3 ML SYRINGE IVFLUSH ×2 (08:59→18:04)
[2023-06-01] MEDS: Apixaban 5 MG TABLET PO ×2 (08:59→20:17)
[2023-06-01] MEDS: Multivitamin TABLET 1 TAB PO (08:59)
[2023-06-01] MEDS: Metoprolol Tartrate 25 MG TABLET PO ×2 (09:33→20:17)
--- NOTE | 2023-06-01 10:18 | P.PNIM_ITS ---
Subjective Subjective Date of Service: 06/01/23 Interval History: f/u on hypOnatremia, weakness and fall and new onset AFIB with intermittent tachycardia, up to 160 overnight, she is also reporting more discomfort in the feet today Physical Exam 2 Vital Signs: Vital Signs: Last Vital Signs Temp 97.4 F 06/01/23 07:17 Pulse 95 06/01/23 07:17 Resp 20 06/01/23 07:17 BP 130/68 06/01/23 07:17 Pulse Ox 97 06/01/23 07:17 O2 Del Method Room Air 06/01/23 07:17 BMI result Body Mass Index 30.3 General: AO X 3, no acute distress Resp: CTA bilateral CVS: S1,S2,RRR GI: +BS, NT, no distention Skin: No rash Neuro: motor grossly intact Psych: appropriate affect Objective Data Active Medications Acetaminophen (Acetaminophen 325 Mg Tablet) 650 mg PO Q6H PRN PRN Reason: Pain, Mild (Pain Scale 1-3) Last Admin: 06/01/23 05:16 Dose: 650 mg Documented By: MAGDALENA Apixaban (Apixaban 5 Mg Tablet) 5 mg PO BID [facility] Last Admin: 06/01/23 08:59 Dose: 5 mg Documented By: ADAL Atorvastatin Calcium (Atorvastatin Calcium 20 Mg Tablet) 20 mg PO BEDTIME [facility] Last Admin: 05/31/23 20:01 Dose: 20 mg Documented By: MAGDALENA Benzonatate (Benzonatate 100 Mg Capsule) 100 mg PO TID PRN PRN Reason: Cough Docusate Sodium (Docusate Sodium 100 Mg Capsule) 100 mg PO DAILY PRN PRN Reason: Constipation Dronedarone (Dronedarone Hcl 400 Mg Tablet) 400 mg PO BID [facility] Lisinopril (Lisinopril 10 Mg Tablet) 10 mg PO DAILY [facility]; Protocol Last Admin: 06/01/23 08:58 Dose: 10 mg Documented By: ADAL Melatonin (Melatonin 3 Mg Tablet) 6 mg PO BEDTIME PRN PRN Reason: Insomnia Metoprolol Tartrate (Metoprolol Tartrate 25 Mg Tablet) 25 mg PO Q6H [facility]; Protocol Last Admin: 06/01/23 09:33 Dose: 25 mg Documented By: ADAL Multivitamins/Vitamin C (Multivitamin Tablet) 1 tab PO DAILY [facility] Last Admin: 06/01/23 08:59 Dose: 1 tab Documented By: ADAL Ondansetron HCl (Ondansetron Hcl 4 Mg/2 Ml Vial) 4 mg IVPUSH Q8H PRN PRN Reason: Nausea and Vomiting Sodium Chloride (0.9 % Sodium Chloride Flush 3 Ml Syringe) 3 ml IVFLUSH QSHIFT [facility] Last Admin: 06/01/23 08:59 Dose: 3 ml Documented By: ADAL Tramadol HCl (Tramadol Hcl 50 Mg Tablet) 25 mg PO Q6H PRN PRN Reason: Pain, Severe (Pain Scale 7-10) Last Admin: 06/01/23 08:58 Dose: 25 mg Documented By: ADAL Labs 05/28/23 04:13 05/31/23 06:59 Labs: Laboratory Results - last 24 hr 05/31/23 06:59 Anion Gap 15 Estim Creat Clear Calc 75.4 Estimated GFR > 60 Random Glucose 107 Calcium 9.1 D Total Creatine Kinase 247 H TSH 2.27 Assessment and Plan (1) Rhabdomyolysis: Status: Acute (2) Weakness: Status: Acute (3) Acute hyponatremia: Status: Acute Plan Pt is an 82-year-old female with a PMH significant for HTN, HLD,?and osteoarthritis who presents to the ED with?generalized weakness and fall at home. Pt will be admitted to the hospital for treatment and further evaluation rhabdomyolysis hyponatremia. PAF--intermittently rate reaching 160s. -continue metoprolol at 25 q6 -Multaq 400 bid per card recommendation -continue Eliquis 5 bid, risk and benefit, including bleeding complication discussed with patient and daughte. 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 PT evaluation recommends STR, Analgesics with APAP, Tramadol Lower leg edema--trace Worsening over the past 2-3 months, likely dependent/venous stasis No other concern for CHF: BNP WNL, no shortness of breath, no orthopnea elevate legs while in bed HTN--controlled Continue lisinopril, metoprolol HLD Continue statin DNR/DNI, verified with pt DVT Prophylaxis: Lovenox need for inpatient: treatment of hypOnatremia and need for fluid management and frequent lab check and safe disposition and now new onset of AFIB that need further testing and med adjustment PT is recommending STR Quality Stroke Does the patient have a stroke diagnosis?: No VTE Prior VTE?: No VTE Risk Level:: Medical - moderate - high VTE Device Contraindication: Treatment Not Indicated VTE Drug Contraindication: N/A - Med Ordered
--- NOTE | 2023-06-01 10:26 | PM.PNCARD ---
Subjective Subjective Date of Service: 06/01/23 Principal diagnosis: Paroxysmal atrial fibrillation Interval history: Patient mainly complains of pain in her right lower extremity. She denies any cardiac symptoms. Denies any palpitation. Noted on monitor to have recurrent episodes of atrial fibrillation/flutter with rapid ventricular response. She denies any chest pain or shortness of breath. Review of Systems Constitutional: Reports no additional constitutional complaints Cardiovascular: Reports no additional cardiovascular complaints Respiratory: Reports no additional respiratory complaints Gastrointestinal: Reports no additional gastrointestinal complaints Genitourinary: Reports no additional female genitourinary complaints Skin/Breast: Reports other (Right lower extremity severe pain) Physical Exam Vital Signs: Last Vital Signs Temp 97.4 F 06/01/23 07:17 Pulse 95 06/01/23 07:17 Resp 20 06/01/23 07:17 BP 130/68 06/01/23 07:17 Pulse Ox 97 06/01/23 07:17 O2 Del Method Room Air 06/01/23 07:17 BMI result Body Mass Index 30.3 GENERAL APPEARANCE: in no acute distress, pleasant. NECK: no carotid bruit, no jugular venous distention. SKIN: no suspicious lesions, warm and dry. HEART: no murmurs, regular rate and rhythm. LUNGS: clear to auscultation bilaterally. ABDOMEN: soft, nontender. EXTREMITIES: Mild edema. PERIPHERAL PULSES: equal. Objective Labs and Meds 05/28/23 04:13 05/31/23 06:59 Lab results: Laboratory Results - last 24 hr 05/31/23 06:59 Sodium 134 L Potassium 4.3 Chloride 103 Carbon Dioxide 20 L Anion Gap 15 BUN 13 Creatinine 0.60 Estim Creat Clear Calc 75.4 Estimated GFR > 60 Random Glucose 107 Calcium 9.1 D Total Creatine Kinase 247 H TSH 2.27 Progress Note: A&P Assessment and plan (1) PAF (paroxysmal atrial fibrillation): Status: Acute Assessment and Plan: Recurrent paroxysmal atrial fibrillation although symptomatic with recurrent rapid heart rate. Not responding to metoprolol therapy. Will start on Multaq 400 mg b.i.d.. EKGs every day after starting Multaq therapy. Continue full oral anticoagulation Eliquis. Continue pain management. Continue blood pressure control with lisinopril. Will follow with you Time Spent With Patient Time: Total time managing care of this patient today ____ minutes. Progress Note: Quality Stroke Does the patient have a stroke diagnosis?: No Procedures Date of Service Date of Service: 06/01/23
--- NOTE | 2023-06-01 10:50 | MHC.CM.PN ---
Per MD rounds no discharge today. Medication changes are being made for Afib. Patient requires montinoring of electrolytes and response to med changes. DP STR via BLS.
[2023-06-01 10:58] VITALS: BP 170/80; PULSE 68; RESP 18; TEMP 36.3; O2SAT 94
[2023-06-01] MEDS: Dronedarone HCl 400 MG TABLET PO ×2 (12:10→20:17)
--- NOTE | 2023-06-01 14:12 | PC.NURSE ---
Patient was having an echo done, certified surgical technologist came and spoke with this RN about concern of lump on L breast. This RN spoke with patient about echo techs concern and patient stated that she first noticed a lump forming on her breast a few months ago. She states that there was a rash associated with the lump when she first noticed it. Upon looking at the breast there is multiple areas of dimpling and and the nipple is inverted. There are also multiple lumps surrounding and within the breast that are not painful to touch. Rash is still present. The right breast also has a few lumps but not a severe as the Left. Patient states that she knows these findings are concerning but that she would rather not know the extent of the issue and has asked staff not to tell anyone especially her daughter. was notified.
--- NOTE | 2023-06-01 14:22 | PC.NURSE ---
Pt still continuing with frequent brief (non-sustained) bursts of aflutter. HR this time going into the 170's but then resolving back into SR 70-80's. MD was notified again and morning medications were given. Metoprolol increased to 25mg and Multag started B.I.D. Echo scheduled to be done this afternoon. At this time patient still mainlining in SR and all other needs met, call fisher withing reach,.
[2023-06-01 16:00] VITALS: BP 116/55; PULSE 85; RESP 18; TEMP 36.8; O2SAT 98
--- NOTE | 2023-06-01 16:14 | PM.EVENT ---
Event Note Date of Service: 06/01/23 Event Note: The patient has a left nipple inversion and felt a mass around the areola. She acknowledges having been aware of this for some time and understands the potential malignancy. She prefers not to undergo further testing or expert assessment and does not wish her daughter to be informed. She is of sound mind and requests her wishes to be respected. SEGUNDO Floyd was present during the conversation. Time Spent With Patient Time: Total time managing care of this patient today ____ minutes.
[2023-06-01 19:36] VITALS: BP 132/67; PULSE 113; RESP 20; TEMP 36.9; O2SAT 97
[2023-06-01] MEDS: Atorvastatin Calcium 20 MG TABLET PO (20:18)
[2023-06-01] MEDS: Melatonin 3 MG TABLET 6 MG PO (23:20)
[2023-06-01 23:22] VITALS: BP 129/60; PULSE 103; RESP 18; TEMP 36.9; O2SAT 94
[2023-06-02 02:50] VITALS: BP 101/57; PULSE 90; RESP 20; TEMP 36.6; O2SAT 94
[2023-06-02 07:01] VITALS: BP 144/62; PULSE 73; RESP 20; TEMP 36.8; O2SAT 97
[2023-06-02] MEDS: Multivitamin TABLET 1 TAB PO (08:15)
[2023-06-02] MEDS: traMADoL HCL 50 MG TABLET 25 MG PO ×2 (08:15→14:12)
[2023-06-02] MEDS: 0.9 % Sodium Chloride Flush 3 ML SYRINGE IVFLUSH (08:15)
[2023-06-02] MEDS: Apixaban 5 MG TABLET PO (08:15)
[2023-06-02] MEDS: lisinopriL 10 MG TABLET PO (08:15)
[2023-06-02] MEDS: Dronedarone HCl 400 MG TABLET PO (08:15)
[2023-06-02] MEDS: Metoprolol Tartrate 25 MG TABLET PO (08:15)
--- NOTE | 2023-06-02 09:20 | PM.DS ---
DS: Providers Provider Date of Service: 06/02/23 Date of admission: 05/28/23 13:02 Primary care physician: Amanda Jasmine MD Consults: 05/31/23 07:53 Consult to Cardiology Routine Consulting Provider: [facility] Cardi[facility] Services Reason for consultation: New Aflutter Has provider been notified: Yes DS: Diagnosis Discharge Diagnosis (1) PAF (paroxysmal atrial fibrillation): Status: Acute DS: Summary Hospital Course Hospital Course: admission Chief Complaint: Genearlized weakness and falls at home Pt is an 82-year-old female with a PMH significant for HTN, HLD,?and osteoarthritis who presents to the ED with?generalized weakness and fall at home. Pt reports has ?horrible? knees and hips for many years with chronic pain. Uses walker and cane at baseline. Reports yesterday evening she went to the bathroom and found she did not have enough strength in her legs to get off the toilet. Daughter came over but could not lift pt so called EMS who assisted in getting her back to bed. All told was on the toilet for two hours. At that time declined to come to the hospital for evaluation. Later that night at 23:00 pt attempted to go to the bathroom again but felt pain, numbness, and weakness in knees and fell slowly to the floor on her left hip. Denies head strike, no LOC. Call daughter who notified EMS who then brought patient to the hospital for further evaluation. Patient denies any recent illnesses or other symptoms: No fever, chills, nausea, vomiting, diarrhea. Denies cough, shortness of breath. No chest pain/pressure, palpitations. Has noticed increased lower leg edema for the past 2-3 months. In the ED pt was tachycardic up to 117 with slightly soft BP of 132/54. Labs were significant for a sodium 129, AST 51, ALT 33, CPK 1723, and initial troponin 25.8. X-ray of hips and pelvis found no acute findings but showed severe arthritic changes to the hips. X-ray of knees bilaterally without acute findings, but showed degenerative changes of the knees. EKG demonstrated normal sinus rhythm without evidence of significant ST elevations or depressions. Pt was treated with tramadol 50 mg p.o.. Pt will be admitted to the hospital for treatment and further evaluation rhabdomyolysis hyponatremia. Hospital course: The patient has a history of longstanding degenerative joint disease affecting her hips and knees, and she has previously declined joint replacement surgery. She presented with weakness and a fall, during which she was unable to get up for a prolonged period. Evaluation in the emergency department revealed elevated CPK levels consistent with mild rhabdomyolysis, as well as hyponatremia with some chronicity noted in her sodium levels. X-rays of her hips showed severe arthritic changes bilaterally. Attempted to do US of some swelling in the leg was causing too much pain compressing the leg and the procedure was stopped and at any event, she is on blood thiner Upon admission, she was provided with pain medication and intravenous fluids to correct the rhabdomyolysis and hyponatremia. Throughout her hospitalization, she developed tachycardia and was found to be in atrial flutter. For her joint pain, conservative management with Tylenol and Tramadol was initiated, and physical therapy recommended strengthening exercises. Her hyponatremia responded well to IV fluid therapy, with her sodium levels improving to 134; it was noted that she had chronic hyponatremia at baseline. Management of her paroxysmal atrial fibrillation included heart rate control with Metoprolol, and Multaq was added by cardiology to help maintain sinus rhythm. During the course of her evaluation, breast masses were noted, particularly on the left side, with features such as inverted nipple, skin dimpling, and redness. Although masses were also palpable on the right side to a lesser extent, the patient expressed a desire to keep the diagnosis and potential further testing confidential, especially from her daughter. She acknowledged the possibility of malignancy and its potential contribution to her mortality but was adamant about not pursuing further testing. She demonstrated understanding of the situation and was deemed to be of sound mind. Time Attestation Discharge Coordination Time (in mins): 45 Quality: Safe Use of Opioids Does Pt have an Active Cancer Diagnosis on the Problem List?: No Quality: Stroke Does the patient have a stroke diagnosis?: No Physical Exam Vital Signs: Vital Signs: Last Vital Signs Temp 98.2 F 06/02/23 07:01 Pulse 73 06/02/23 07:01 Resp 20 06/02/23 07:01 BP 144/62 H 06/02/23 07:01 Pulse Ox 97 06/02/23 07:01 O2 Del Method Room Air 06/02/23 07:01 BMI result Body Mass Index 30.3 General: AO X 3, no acute distress Resp: CTA bilateral CVS: S1,S2,RRR, mild swellingin leg, r> l GI: +BS, NT, no distention Skin: No rash Neuro: motor grossly intact Psych: appropriate affect Discharge Plan Discharge Anticipated Discharge Date/Time: 06/02/23 09:20 Patient Disposition: Xfer SNF Discharge Diagnosis: Fall, Rhabdomylosis, PAF [facility]errals: [facility] [Outside] - 1 Week Amanda Silva MD [Primary Care Provider] - 1 Week Discharge Medications: New metoprolol tartrate 25 mg Tablet 25 mg PO BID Qty: 60 0RF Protocol: Hold for SBP/HR < HOLD for SBP < : 90 HOLD for HR < : 60 Multaq 400 mg Tablet 400 mg PO BID Qty: 180 0RF acetaminophen 325 mg Tablet 650 mg PO Q6H PRN (Reason: Pain, Mild (Pain Scale 1-3)) Qty: 30 0RF melatonin 3 mg Tablet 6 mg PO BEDTIME PRN (Reason: Insomnia) Qty: 30 0RF tramadol 50 mg Tablet 50 mg PO Q8H PRN (Reason: Pain, Severe (Pain Scale 7-10)) Qty: 14 0RF docusate sodium 100 mg Capsule 100 mg PO DAILY PRN (Reason: Constipation) Qty: 30 0RF docusate sodium [Colace] 100 mg capsule 100 mg PO BID Qty: 60 0RF Continued lisinopril 10 mg tablet 10 mg PO DAILY 90 Days Qty: 90 3RF atorvastatin 20 mg tablet 20 mg PO BEDTIME multivitamin Tablet 1 tab PO DAILY omega-3 fatty acids-fish oil 684-1,200 mg Capsule,Delayed Release(Dr/Ec) 1 cap PO DAILY Discharge Orders: Discharge Order (Routine); Ordered 06/02/23 Ordered By: Abel Nelson Diet: Advance to usual diet Activity on Discharge: As tolerated Stand Alone Forms: Patient Portal Discharge page Care Plan Goals: Full recovery from fall, weakness Health Concerns: Fall, weakness, hyponatremia, degenerative join disease Plan of Treatment: To Short term rehab for less than 30 days PT and OT to help with ambulation, blance.. Should use walker with assist Tramadol and Tylenol for pain For atrial fibrilation, take Metoprolol 25 mg twice daily and Multaq 400 mg twice daily to control heart rate, Eliquis to thin your blood and prevent stroke Follow up with your Doctor in a week, Assessment: see above
--- NOTE | 2023-06-02 09:50 | PM.PNCARD ---
Subjective Subjective Date of Service: 06/02/23 Principal diagnosis: Paroxysmal atrial fibrillation Interval history: Patient with no cardiac symptoms. Has diffuse pain all over predominantly in the right lower extremity. Since last night she has not had any episodes of atrial fibrillation. Last episode appears to be at 20:30 last night. Denies any palpitations. No neurologic symptoms. Review of Systems Constitutional: Reports no additional constitutional complaints Cardiovascular: Reports no additional cardiovascular complaints Respiratory: Reports no additional respiratory complaints Musculoskeletal: Reports other (Pain) Physical Exam Vital Signs: Last Vital Signs Temp 98.2 F 06/02/23 07:01 Pulse 73 06/02/23 07:01 Resp 20 06/02/23 07:01 BP 144/62 H 06/02/23 07:01 Pulse Ox 97 06/02/23 07:01 O2 Del Method Room Air 06/02/23 07:01 BMI result Body Mass Index 30.3 GENERAL APPEARANCE: in no acute distress, pleasant. NECK: no carotid bruit, no jugular venous distention. SKIN: no suspicious lesions, warm and dry. HEART: no murmurs, regular rate and rhythm. LUNGS: clear to auscultation bilaterally. ABDOMEN: soft, nontender. EXTREMITIES: Mild edema. PERIPHERAL PULSES: equal. Objective Labs and Meds 05/28/23 04:13 05/31/23 06:59 Progress Note: A&P Assessment and plan (1) PAF (paroxysmal atrial fibrillation): Status: Acute Assessment and Plan: Paroxysmal atrial fibrillation which now appears to be suppressed on therapy with Multaq. Continue the same. Will follow-up as outpatient with a Holter monitor. Continue full oral anticoagulation with Eliquis. Fall prevention techniques need to be pursued. Management was discussed with her in details. Continue supportive care. Will sign of the case at this point in time. Thank you for allowing me to partake in her care Time Spent With Patient Time: Total time managing care of this patient today ____ minutes. Progress Note: Quality Stroke Does the patient have a stroke diagnosis?: No Procedures Date of Service Date of Service: 06/02/23
[2023-06-02 11:03] VITALS: BP 125/60; PULSE 84; RESP 20; TEMP 36.4; O2SAT 97
--- NOTE | 2023-06-02 12:03 | MHC.CM.PN ---
IMM 06/02/23 Patient is discharged today. She [facility]. She chose [facility]. She will transport to [facility] 5:30pm fern picker
[2023-06-02] MEDS: Acetaminophen 325 MG TABLET 650 MG PO (13:27)
[2023-06-02 16:00] VITALS: BP 109/50; PULSE 78; RESP 20; TEMP 36.6; O2SAT 93
== END 2023-06-02 18:08 | disposition skilled nursing facility (03) | DRG 558 ==
LOC: HO.ED 07:59 → HO.EDOVER 13:11 → HO.IMC 16:04
PROVIDERS: Hospitalist; Admitting Provider Student in an Organized Health Care Education/Training Program; Emergency Provider Emergency Medicine; PCP Internal Medicine; Visit Provider Internal Medicine
DX: M62.82 Rhabdomyolysis (principal); E87.1 Hypo-osmolality and hyponatremia; I47.10 Supraventricular tachycardia, unspecified; I48.0 Paroxysmal atrial fibrillation; I10 Essential (primary) hypertension; N63.42 Unspecified lump in left breast, subareolar; Z66 Do not resuscitate; M16.0 Bilateral primary osteoarthritis of hip; M17.0 Bilateral primary osteoarthritis of knee; I87.303 Chronic venous hypertension (idiopathic) without complications of bilateral lower extremity; E78.5 Hyperlipidemia, unspecified; W19.XXXA Unspecified fall, initial encounter; Z79.899 Other long term (current) drug therapy
CPT/HCPCS: 36415; 73521; 73560; 80048; 80053; 82248; 82550; 83735; 83880; 83935; 84300; 84443; 84484; 85025; 93005; 93306; 93971; 97162; 97530; 99285; J1650; Q9957

== ENCOUNTER 2023-05-28 13:02 | Outpatient (BNV) | payer MEDICARE, OTHER, SELFPAY | END 2023-06-01 07:00 | PROVIDERS: Admitting Provider Student in an Organized Health Care Education/Training Program; Emergency Provider Emergency Medicine; PCP Internal Medicine; Visit Provider Internal Medicine Cardiovascular Disease | DX: I48.91 Unspecified atrial fibrillation (principal) | CPT/HCPCS: 93306 ==

== ENCOUNTER 2023-05-28 13:02 | Outpatient (BNV) | payer MEDICARE, OTHER, SELFPAY | END 2023-05-30 17:22 | PROVIDERS: Admitting Provider Student in an Organized Health Care Education/Training Program; Emergency Provider Emergency Medicine; PCP Internal Medicine; Visit Provider Internal Medicine Cardiovascular Disease | DX: I48.91 Unspecified atrial fibrillation (principal) | CPT/HCPCS: 93010 ==

== ENCOUNTER 2023-05-28 13:02 | Outpatient (BNV) | payer MEDICARE, OTHER, SELFPAY | END 2023-05-31 07:41 | PROVIDERS: Admitting Provider Student in an Organized Health Care Education/Training Program; Emergency Provider Emergency Medicine; PCP Internal Medicine; Visit Provider Internal Medicine Cardiovascular Disease | DX: I48.91 Unspecified atrial fibrillation (principal) | CPT/HCPCS: 93010 ==

== ENCOUNTER → 2023-05-28 13:02 | Outpatient (BNV) | payer MEDICARE, OTHER, SELFPAY | PROVIDERS: Admitting Provider Student in an Organized Health Care Education/Training Program; Emergency Provider Emergency Medicine; Visit Provider Student in an Organized Health Care Education/Training Program | DX: I48.0 Paroxysmal atrial fibrillation (principal) | CPT/HCPCS: 99223; 99232; 99239 ==

== ENCOUNTER → 2023-05-28 13:02 | Outpatient (BNV) | payer MEDICARE, OTHER, SELFPAY | PROVIDERS: Admitting Provider Student in an Organized Health Care Education/Training Program; Emergency Provider Emergency Medicine; PCP Internal Medicine; Visit Provider Internal Medicine Cardiovascular Disease | DX: I48.0 Paroxysmal atrial fibrillation (principal) | CPT/HCPCS: 99222; 99233 ==

== ENCOUNTER 2024-06-28 17:04 | Outpatient (AMB) | payer MEDICARE, OTHER, SELFPAY ==
--- NOTE | 2024-06-28 17:07 | A.OFFPC_ITS ---
Intake Visit Reasons: follow up Tubing Tester Required: No Accompanied by: Self / Same As Patient Allergies No Known Allergies Allergy (Verified 06/28/24 19:46) Medication List - Last Reconciled 06/28/24 by Amanda Jasmine MD [adult diapers briefs As directed] oxycodone 5 mg PO Q6H PRN 7 days sennosides (senna) 8.6 mg PO BEDTIME PRN 30 days tramadol 50 mg PO Q8H PRN 30 days Tobacco use date assessed: 06/28/24 Fall risk assessment: No Falls in past year Last assessed Fall Risk: 06/28/24 Dental Screening Dental Screen Date: 06/28/24 Did you have a dental visit in the last 12 months?: No Did you have a dental problem in the last 6 months where you did not have access to dental care?: No Was dental information given to patient?: Patient declined HPI HPI Comments History of Present Illness Details This is an 83-year-old female with hypertension, pure hypercholesterolemia, paroxysmal atrial fibrillation and breast cancer that has tele health visit by phone for follow-up on her conditions. She has stopped using all her medications for blood pressure, cholesterol and atrial fibrillation and is only on tramadol for diffuse joint pain which is continuous and not relieved by tramadol. I will start her on oxycodone for a week to see how it goes. She denies any chest pain or shortness on breath. No depression or anxiety. She barely gets out of bed due to pain. Diagnosed with breast cancer about a year ago and declines any type of treatment. [facility] Medical History (Updated 06/28/24 @ 17:20 by Amanda Jasmine MD) Hyponatremia Pre-op evaluation Pure hypercholesterolemia Essential hypertension Surgical History No pertinent past surgical history Family History Father Pancreatic cancer Mother Medical history unknown Social History Household Members: None Housing: Condominium Do you presently have visiting nurse or other home services: No Alcohol intake: never Patient Tobacco Use Status: Never used Tobacco e-Cigarette/Vaping Use: Never Used Second Hand Smoke Exposure: No service: No Current occupational status: retired Cognitive needs: Yes Hearing needs: No Vision needs: No Questionnaire PHQ-9 Over the last 2 weeks, how often have you been bothered by any of the following problems? 1. Little interest or pleasure in doing things: not at all 2. Feeling down, depressed, or hopeless: not at all 3. Trouble falling or staying asleep, or sleeping too much: not at all 4. Feeling tired or having little energy: not at all 5. Poor appetite or overeating: not at all 6. Feeling bad about yourself - or that you are a failure or have let yourself or your family down: not at all 7. Trouble concentrating on things, such as reading the newspaper or watching television: not at all 8. Moving or speaking so slowly that other people could have noticed. Or the opposite - being so fidgety or restless that you have been moving around a lot more than usual: not at all 9. Thoughts that you would be better off or of hurting yourself in some way: not at all Total score: 0 Depression Screening Interpretation: Negative Depression Screening Done: Yes Source: Developed by Drs. Omid Hartman, Dawn Hoang, Paulo Chau and colleagues, with an educational isiah from [employer]. Thrive Questionnaire Date Thrive assessed: 06/28/24 I am a: Patient What is your living situation today?: I have a steady place to live Within the past 12 months, did the food you bought not last and you didn't have the money to get more?: Never true Within the past 12 months, did you worry whether your food would run out before you got money to buy more?: Never true Do you have trouble paying for medicines?: No Do you have trouble getting transportation to medical appointments?: No Do you have trouble paying your heating and electricity bill?: No Do you have trouble taking care of your child, family member or friend?: No Do you have trouble with day-to-day activities such as bathing, preparing meals, shopping, managing finances, etc.?: No Are you currently unemployed and looking for a job?: No Are you interested in more education?: No Please select the resources that you would like help with: None Currently or been in a relationship where the following occur: No concerns reported THRIVE Score: 0 AUDIT C Alcohol Use Questionnaire (AUDIT-C) 1. How often do you have a drink containing alcohol?: Never Total Score: 0 Score Reviewed/Action Taken: No BRITTANY-7 AMB Questionnaire BRITTANY-7 Date BRITTANY - 7 assessed: 06/28/24 Feeling nervous, anxious, or on edge: 0 = Not at all Not being able to stop or control worryin = Not at all Worrying too much about different things: 0 = Not at all Trouble relaxin = Not at all Being so restless that it is hard to sit still: 0 = Not at all Becoming easily annoyed or irritable: 0 = Not at all Feeling afraid as if something awful might happen: 0 = Not at all Total BRITTANY-7 score (0-4 normal; 5-9 mild; 10-14 moderate; 15-21 severe): 0 Source: Developed by Drs. Omid Hartman, Dawn Hoang, Paulo Chau and colleagues, with an educational isiah from [employer]. BRITTANY-7 Assessment Billing BRITTANY-7 Assessment Tool: BRITTANY-7 Assessment 80002 Review of Systems Const All systems reviewed & are unremarkable except as noted in HPI and below Card Denies chest pain at rest, Denies chest pain with activity, Denies edema, Denies irregular heart rhythm, Denies claudication, Denies dyspnea, Denies dyspnea on exertion, Denies orthopnea, Denies paroxysmal nocturnal dyspnea and Denies slow heart rate Resp Denies cough, Denies dyspnea and Denies dyspnea on exertion Musc Denies abnormal gait, Reports back pain, Denies atrophy, Denies deformity, Reports arthralgias and Denies limited range of motion Neuro Denies abnormal gait, Denies behavioral changes and Denies lack of coordination Psych Denies behavioral changes Physical exam (Primary Care) Tobacco/Smoking Status: Tobacco use Status Tobacco use date assessed 06/28/24 06/28/24 17:15 Patient Tobacco Use Status Never used Tobacco 06/28/24 17:08 e-Cigarette/Vaping Use Never Used 06/28/24 17:08 PHQ-9: PHQ-9 Score PHQ-9: Total score 0 06/28/24 17:15 Depression Screening Interpretation: Negative Thrive Assessment: Date of Thrive Assessment Date Thrive assessed 06/28/24 06/28/24 17:15 Currently or been in a relationship where the following occur: No concerns reported Telehealth Telehealth Telehealth Platform: Telephone Location of provider rendering services: practice address Location of patient: address on file Patient Identification confirmed using: Name, : Yes Telehealth method: voice only Patient verbally consented to treatment: Yes Patient verbally consented to billing insurance company: Yes Patient informed of any privacy concerns related to visit: Yes Coding Level of Care Code Tele Est Pt Level 4 (85638) Diagnoses Breast cancer C50.919 PAF (paroxysmal atrial fibrillation) I48.0 Essential hypertension I10 Pure hypercholesterolemia E78.00 Additional Codes BRITTANY-7 Assessment Billing - BRITTANY-7 Assessment Tool: BRITTANY-7 Assessment 64408 ([id number]) Time Spent (min) 15 Assessment & Plan Assessment & Plan (1) Breast cancer: Code(s): C50.919 - Malignant neoplasm of unspecified site of unspecified female breast Category: Medical (2) PAF (paroxysmal atrial fibrillation): Code(s): I48.0 - Paroxysmal atrial fibrillation Category: Medical (3) Essential hypertension: Code(s): I10 - Essential (primary) hypertension Category: Medical (4) Pure hypercholesterolemia: Code(s): E78.00 - Pure hypercholesterolemia, unspecified Category: Medical Plan Hold tramadol. Start oxycodone for breast pain. Discontinue all other medications. Medications: New oxycodone Partial Fill upon patient request. 5 mg PO Q6H PRN 28 tabs 0RF pain 7 days C50.919 - Malignant neoplasm of unspecified site of unspecified female breast sennosides (senna) 8.6 mg PO BEDTIME PRN 30 tabs 0RF constipation 30 days
== END 2024-06-28 17:35 | disposition home or self-care (01) ==
PROVIDERS: PCP Internal Medicine; Visit Provider Internal Medicine
DX: C50.919 Malignant neoplasm of unspecified site of unspecified female breast (principal); I48.0 Paroxysmal atrial fibrillation; I10 Essential (primary) hypertension; E78.00 Pure hypercholesterolemia, unspecified

== ENCOUNTER → 2024-06-28 17:04 | Outpatient (BNVA) | payer MEDICARE, OTHER, SELFPAY | PROVIDERS: PCP Internal Medicine; Visit Provider Internal Medicine | DX: I10 Essential (primary) hypertension (principal); I48.0 Paroxysmal atrial fibrillation; E78.00 Pure hypercholesterolemia, unspecified; C50.919 Malignant neoplasm of unspecified site of unspecified female breast | CPT/HCPCS: 96127 ==